=== PATIENT | female | born 1950 | race Caucasian/White ===

== ENCOUNTER 2017-12-09 06:06 | Day surgery (SDC) | payer MEDICARE, BC ==
[2017-12-09] MEDS ORDERED: Sodium Chloride 0.9% 5 ML Syringe FLUSH PRN (06:15)
[2017-12-09] MEDS ORDERED: Sodium Chloride 0.9% 1,000 ML IV SCH (06:15)
[2017-12-09] MEDS: Cyclopentolate 1% Opth Soln 2 ML Bottle EYERT SCH ×3 (06:26→06:58)
[2017-12-09] MEDS: Phenylephrine 10% Ophth Soln 5 ML Bot EYERT SCH ×3 (06:38→07:07)
[2017-12-09] MEDS ORDERED: Gatifloxacin 0.5% Ophth Soln 2.5 ML Bot EYERT SCH (07:15)
[2017-12-09] MEDS ORDERED: Water For Irrigation,Sterile 1,500 ML Container IRR ONE (08:39)
[2017-12-09] MEDS ORDERED: Balanced Salt Solution Ophth Irrig 15 ML Bottle EYERT ONE (08:39)
[2017-12-09] MEDS ORDERED: EPINEPHrine 1 MG/ML SDV ONE (08:40)
[2017-12-09] MEDS ORDERED: Carbachol 0.01% Intraocular 1.5 ML Vial EYERT ONE (08:40)
[2017-12-09] MEDS ORDERED: Dexamethasone/Neomycin/Polymyxin B Ophth Oint 3.5 GM Tube EYERT ONE (08:40)
[2017-12-09] MEDS ORDERED: Balanced Salt Solution Plus Ophth Irrig 500 ML Bottle IOCULAR ONE (08:40)
[2017-12-09] MEDS ORDERED: Lidocaine 1% 10 ML MDV INJECT ONE (08:41)
[2017-12-09] MEDS ORDERED: Lidocaine 2% with EPINEPHrine 1:100,000 20 ML MDV INJECT ONE (08:41)
[2017-12-09] MEDS ORDERED: Hyaluronate Sodium 1% 0.85 ML Syringe IOCULAR ONE ×2 (08:41)
[2017-12-09] MEDS ORDERED: Tetracaine HCl/PF 0.5% 4 ML Bottle EYEBOTH ONE (08:42)
--- NOTE | 2017-12-10 09:56 | OR ---
DATE OF SURGERY: 12/09/2017 SURGEON: Sav Kaiser MD PREOPERATIVE DIAGNOSIS: Cataract, right eye. POSTOPERATIVE DIAGNOSIS: Cataract, right eye. OPERATION PERFORMED: Phacoemulsification with posterior chamber lens insertion, right eye. HISTORY: The patient presents at this time with increasing difficulty seeing road signs. Vision for the right eye is 20/50. In the right eye, has a 2 to 3+ nuclear sclerosis of the lens along with a 1 to 2+ posterior subcapsular change. 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 FINDINGS: The patient was taken to the operating room where appropriate anesthesia, sedation and monitoring were provided. A retrobulbar block was given on the right side. The eye was massaged and was found to be appropriately soft. The eye and eyelids were then prepped and draped in the usual sterile manner. A lid speculum was placed. A micro sharp blade was used to enter the anterior chamber inside the limbus superior-temporally. Xylocaine was irrigated into the eye at this site. Healon was irrigated into the eye through this site. Then using a 2.85 mm corneal blade an entry was made into the anterior chamber just inside the limbus temporally. Healon was again irrigated into the eye. Then using a cystitome, the anterior capsulorrhexis was created. The lens nucleus was hydrodissected using a 27 gauge cannula and balanced salt solution. The phacoemulsification unit was introduced through the temporal site and the Stew spatula through the superior temporal site. In so doing, the lens nucleus was phacoemulsified. The cortical fragments of the lens were removed using the irrigation aspiration unit. The posterior capsule was polished. Healon was irrigated into the eye. The posterior chamber lens was inserted and rotated into position inside the capsular bag. The Healon was irrigated out of the eye. Miostat was irrigated into the eye and the pupil rounded nicely. A single interrupted 10-0 Nylon suture was placed through the temporal corneal incision site. Balanced salt solution was irrigated into the eye. The wound was tested and found to be tight. Maxitrol ointment was placed into the patient's right eye. The eyelids were closed and an eye patch and cabrera shield were placed. The patient left the operating room in good condition. /[id number]/MODL
== END 2017-12-09 09:35 | disposition home or self-care (01) ==
LOC: KA.SDS 06:06
PROVIDERS: ATTEND Ophthalmology
DX: H25.011 Cortical age-related cataract, right eye (principal); E03.9 Hypothyroidism, unspecified; E78.00 Pure hypercholesterolemia, unspecified; I12.9 Hypertensive chronic kidney disease with stage 1 through stage 4 chronic kidney disease, or unspecified chronic kidney disease; E11.22 Type 2 diabetes mellitus with diabetic chronic kidney disease; N18.3 Chronic kidney disease, stage 3 (moderate); Z79.899 Other long term (current) drug therapy; Z79.82 Long term (current) use of aspirin; Z88.1 Allergy status to other antibiotic agents; Z88.8 Allergy status to other drugs, medicaments and biological substances
CPT/HCPCS: 00142; 82962; A9270-GY; C1780; J0171; J7030

== ENCOUNTER 2018-01-06 06:05 | Day surgery (SDC) | payer MEDICARE, BC ==
[2018-01-06] MEDS ORDERED: Sodium Chloride 0.9% 5 ML Syringe FLUSH PRN (06:15)
[2018-01-06] MEDS ORDERED: Gatifloxacin 0.5% Ophth Soln 2.5 ML Bot EYELF SCH (06:15)
[2018-01-06] MEDS ORDERED: Sodium Chloride 0.9% 1,000 ML IV SCH (06:15)
[2018-01-06] MEDS: Phenylephrine 10% Ophth Soln 5 ML Bot EYELF SCH ×3 (06:23→06:56)
[2018-01-06] MEDS: Cyclopentolate 1% Opth Soln 2 ML Bottle EYELF SCH ×3 (06:36→07:06)
[2018-01-06] MEDS ORDERED: Water For Irrigation,Sterile 1,500 ML Container IRR ONE (08:32)
[2018-01-06] MEDS ORDERED: EPINEPHrine 1 MG/ML SDV ONE (08:33)
[2018-01-06] MEDS ORDERED: Balanced Salt Solution Ophth Irrig 15 ML Bottle EYELF ONE (08:33)
[2018-01-06] MEDS ORDERED: Carbachol 0.01% Intraocular 1.5 ML Vial EYELF ONE (08:33)
[2018-01-06] MEDS ORDERED: Balanced Salt Solution Plus Ophth Irrig 500 ML Bottle IOCULAR ONE (08:33)
[2018-01-06] MEDS ORDERED: Dexamethasone/Neomycin/Polymyxin B Ophth Oint 3.5 GM Tube EYELF ONE (08:34)
[2018-01-06] MEDS ORDERED: Hyaluronate Sodium 1% 0.85 ML Syringe IOCULAR ONE (08:35)
[2018-01-06] MEDS ORDERED: Lidocaine 2% with EPINEPHrine 1:100,000 20 ML MDV INJECT ONE (08:35)
[2018-01-06] MEDS ORDERED: Lidocaine 1% 10 ML MDV INJECT ONE (08:35)
[2018-01-06] MEDS ORDERED: Tetracaine HCl/PF 0.5% 4 ML Bottle EYEBOTH ONE (08:36)
--- NOTE | 2018-01-07 09:29 | OR ---
DATE OF SURGERY: 01/06/2018 SURGEON: Sav Kaiser MD PREOPERATIVE DIAGNOSIS: Cataract, left eye. POSTOPERATIVE DIAGNOSIS: Cataract, left eye. OPERATION: Phacoemulsification with posterior chamber lens insertion, left eye. HISTORY: The patient presents with increasing difficulty seeing at night due to glare. The vision of the left eye is 20/60 -2. The left eye has a 2 to 3+ nuclear sclerosis lens along with a 2+ posterior subcapsular change. She has a cataract of aging, and a combined cataract. FINDINGS: The patient was taken to the operating room where appropriate anesthesia, sedation and monitoring were provided. A retrobulbar block was given on the left side. The eye was massaged and was found to be appropriately soft. The eye and eyelids were then prepped and draped in the usual sterile manner. A lid speculum was placed. A micro sharp blade was used to enter the anterior chamber inside the limbus inferior-temporally. Xylocaine was irrigated into the eye at this site. Healon was irrigated into the eye through this site. Then using a 2.85 mm corneal blade an entry was made into the anterior chamber just inside the limbus temporally. Healon was again irrigated into the eye. Then using a cystitome, the anterior capsulorrhexis was created. The lens nucleus was hydrodissected using a 27 gauge cannula and balanced salt solution. The phacoemulsification unit was introduced through the temporal site and the Stew spatula through the inferior temporal site. In so doing, the lens nucleus was phacoemulsified. The cortical fragments of the lens were removed using the irrigation aspiration unit. The posterior capsule was polished. Healon was irrigated into the eye. The posterior chamber lens was inserted and rotated into position inside the capsular bag. The Healon was irrigated out of the eye. Miostat was irrigated into the eye and the pupil rounded nicely. A single interrupted 10-0 Nylon suture was placed through the temporal corneal incision site. Balanced salt solution was irrigated into the eye. The wound was tested and found to be tight. Maxitrol ointment was placed into the patient's left eye. The eyelids were closed and an eye patch and cabrera shield were placed. The patient left the operating room in good condition. /[id number]/MODL
== END 2018-01-06 09:22 | disposition home or self-care (01) ==
LOC: KA.SDS 06:05
PROVIDERS: ATTEND Ophthalmology
DX: H25.812 Combined forms of age-related cataract, left eye (principal); I12.9 Hypertensive chronic kidney disease with stage 1 through stage 4 chronic kidney disease, or unspecified chronic kidney disease; E11.22 Type 2 diabetes mellitus with diabetic chronic kidney disease; N18.3 Chronic kidney disease, stage 3 (moderate); E78.00 Pure hypercholesterolemia, unspecified; E83.52 Hypercalcemia; Z79.84 Long term (current) use of oral hypoglycemic drugs; Z79.82 Long term (current) use of aspirin; Z79.899 Other long term (current) drug therapy; Z88.1 Allergy status to other antibiotic agents; Z88.2 Allergy status to sulfonamides; Z88.8 Allergy status to other drugs, medicaments and biological substances
CPT/HCPCS: 82962; A9270-GY; J0171; J7030

== ENCOUNTER 2021-09-04 10:14 | Inpatient (IN) | payer MEDICARE, BC ==
[2021-09-04] MEDS: Sodium Chloride 0.9% 10 ML Syringe FLUSH PRN ×2 (10:18→12:05)
--- NOTE | 2021-09-04 10:24 | EDM.PDOC ---
ED HPI GENERAL MEDICAL PROBLEM - General Chief Complaint: Respiratory Problem Stated Complaint: FATIGUE Time Seen by Provider: 09/04/21 10:21 Source of Information: Reports: Patient - History of Present Illness INITIAL COMMENTS - FREE TEXT/NARRATIVE: Linnea, 70-year-old female, brought by her per private vehicle with onset of chills roughly 10 days ago. States she became sick 4 days ago. Cough worsening fatigue increased blood sugars with poor appetite. 1.7 L bottle alcohol every 4 days predominantly evening drinking. is unsure of intake the past couple days. Covid vaccinated as well as boosted in July 2021. Increased blood sugars have been prominent running in the high 200s. Denies chest pain body aches or injury. relates she is having some cognitive decline with memory and is scheduled for November 27 for psychiatric/neuropsychiatric testing Onset: Unknown/Unsure Duration: Week(s): Location: Reports: Chest - Related Data Allergies Allergy/AdvReac Type Severity Reaction Status Date / Time Knupvfs-UNU-AiN Reductase Allergy ELEVATED Verified 09/04/21 12:41 Inhibitor LIVER [Chbrpmd-Wyn-Hhh Reductase ENZYMES Inhibitor] sulfamethizole Allergy UNKNOWN Verified 09/04/21 12:41 sulfamethoxazole Allergy Rash Verified 09/04/21 12:41 [From Bactrim] trimethoprim [From Bactrim] Allergy Rash Verified 09/04/21 12:41 Home Meds: Home Meds Aspirin [Halfprin] 81 mg PO DAILY 12/08/17 [History] Desoximetasone [Topicort 0.25% Crm] 15 gm TOP BID PRN 12/08/17 [History] Metoprolol Succinate [Toprol Xl] 25 mg PO DAILY 12/08/17 [History] SitaGLIPtin [Januvia] 100 mg PO DAILY 12/08/17 [History] Valsartan 160 mg PO DAILY 12/08/17 [History] amLODIPine Besylate [Amlodipine Besylate] 10 mg PO DAILY 12/08/17 [History] Donepezil HCl [Aricept] 10 mg PO BEDTIME 09/04/21 [History] Levothyroxine 112 mcg PO ACBREAKFAST 09/04/21 [History] Sertraline [Zoloft] 50 mg PO DAILY 09/04/21 [History] metFORMIN HCl [Metformin HCl ER] 500 mg PO BEDTIME 09/04/21 [History] Past Medical History HEENT History: Reports: Cataract, Hard of Hearing, Impaired Vision Cardiovascular History: Reports: High Cholesterol, Hypertension Gastrointestinal History: Reports: None Genitourinary History: Reports: None [employer] History: Reports: Endocrine/Metabolic History: Reports: Hyperparathyroidism, Hypothyroidism - Infectious Disease History Infectious Disease History: Reports: Chicken Pox, Measles, Mumps - Past Surgical History Head Surgeries/Procedures: Reports: None HEENT Surgical History: Reports: Cataract Surgery, Tonsillectomy Cardiovascular Surgical History: Reports: None GI Surgical History: Reports: Appendectomy Female Surgical History: Reports: Hysterectomy, Tubal Ligation Endocrine Surgical History: Reports: None Dermatological Surgical History: Reports: None Social & Family History - Family History Family Medical History: No Pertinent Family History - Caffeine Use Caffeine Use: Reports: Coffee, Soda ED ROS GENERAL - Review of Systems Review Of Systems: Comprehensive ROS is negative, except as noted in HPI. ED EXAM, GENERAL - Physical Exam Exam: See Below Free Text/Narrative:: Alert and somewhat oriented to location. She does appear ill. There is no cyanosis nor pallor. [place] moist mucous membranes with hearing aids in place. Neck is soft supple no JVD, no carotid bruit, no rigidity. Thorax is mildly diminished lower left worse so than right with scattered rhonchi. No wheezes are appreciated. Cardiac is S1-S2 tachycardic in nature with no murmur appreciated. Abdomen is soft bowel sounds are present there is no tenderness. Is trace edema to lower extremities with no evidence of integument disruption. She is somewhat slow in her response to verbal questioning if it is secondary of hearing or of cognitive decline. #1 Interpretation EKG Date: 09/04/21 Time: 10:41 Rhythm: NSR Rate (Beats/Min): 103 (Sinus tachycardia) [place]: Normal P-Wave: Present QRS: Normal ST-T: Normal QT: Normal Comparison: NA - No Prior EKG Course - Vital Signs Last Recorded V/S: Last Vital Signs Temp 96.7 F L 09/04/21 11:00 Pulse 2 L 09/04/21 11:00 Resp 21 H 09/04/21 11:00 BP 114/57 L 09/04/21 11:00 Pulse Ox 93 L 09/04/21 11:00 - Orders/Labs/Meds Orders: Active Orders 24 hr Category Date Time Status Patient Status [ADT] Routine ADT 09/04/21 13:40 Active Blood Glucose Check, Bedside [RC] ONETIME Care 09/04/21 12:59 Active Peripheral IV Care [RC] . DIRECTED Care 09/04/21 10:23 Active CULTURE BLOOD [BC] Stat Lab 09/04/21 10:35 Received CULTURE BLOOD [BC] Stat Lab 09/04/21 10:35 Received LACTIC ACID [CHEM] Routine Lab 09/04/21 13:32 Ordered UA RFX SHAYNE AND CULT IF INDIC [URIN] Stat Lab 09/04/21 10:22 Ordered Sodium Chloride 0.9% [Normal Saline] 50 ml Med 09/04/21 11:45 Active IV ASDIRECTED Sodium Chloride 0.9% [Saline Flush] Med 09/04/21 10:22 Active 10 ml FLUSH Q8HR PRN Blood Culture x2 Reflex Set [OM.PC] Stat Oth 09/04/21 10:22 Ordered Peripheral IV Insertion Adult [OM.PC] Stat Oth 09/04/21 10:22 Ordered Code Status [Resuscitation Status] Stat Resus Stat 09/04/21 13:42 Ordered EKG 12 Lead [EK] Stat Ther 09/04/21 10:22 Ordered Medication Orders Sodium Chloride (Normal Saline) 50 mls @ 200 mls/min IV ASDIRECTED ALICIA Sodium Chloride (Sodium Chloride 0.9% 10 Ml Syringe) 10 ml FLUSH Q8HR PRN PRN Reason: keep vein open Last Admin: 09/04/21 12:05 Dose: 10 ml Documented by: Admin: 09/04/21 10:18 Dose: 10 ml Documented by: GIGI Labs: Laboratory Tests 09/04/21 09/04/21 09/04/21 Range/Units 10:20 10:20 10:22 WBC 17.22 H (5.00-10.00) 10^3/uL RBC 3.86 (3.80-5.50) 10^6/uL Hgb 12.5 (12.0-16.0) g/dL Hct 36.8 L (37.0-47.0) % MCV 95.3 H (82.0-92.0) fL MCH 32.4 H (27.0-31.0) pg MCHC 34.0 (32.0-36.0) g/dL RDW 11.9 (11.5-14.5) % Plt Count 459 H (150-400) 10^3/uL MPV 10.4 (7.4-10.4) fL Immature Gran % (Auto) 1.2 (0.0-5.0) % Neut % (Auto) 82.5 H (50.0-70.0) % Lymph % (Auto) 3.7 L (20.0-40.0) % [place] % (Auto) 12.4 H (2.0-8.0) % Eos % (Auto) 0.0 L (1.0-3.0) % Baso % (Auto) 0.2 (0.0-1.0) % Neut # (Auto) 14.22 H (2.50-7.00) 10^3/uL Lymph # (Auto) 0.64 L (1.00-4.00) 10^3/uL [place] # (Auto) 2.13 H (0.10-0.80) 10^3/uL Eos # (Auto) 0.00 L (0.10-0.30) 10^3/uL Baso # (Auto) 0.03 (0.00-0.10) 10^3/uL Immature Gran # (Auto) 0.20 (0.00-0.50) 10^3/uL D-Dimer, Quantitative 1670 H (<400) ng/mL Sodium 127 L (136-145) mmol/L Potassium 3.3 L (3.5-5.1) mmol/L Chloride 90 L (98-107) mmol/L Carbon Dioxide 20.6 L (21.0-32.0) mmol/L Anion Gap 19.7 H (5-15) mmol/L BUN 26 H (7-18) mg/dL Creatinine 1.06 (0.51-1.17) mg/dL Est Cr Clr Drug Dosing TNP Estimated GFR (MDRD) 51 mL/min Glucose 356 H (70-140) mg/dL Lactic Acid (0.4-2.0) mmol/L Calcium 9.1 (8.7-10.3) mg/dL Total Bilirubin 0.7 (0.2-1.0) mg/dL AST 20 (15-37) U/L ALT 18 (14-63) U/L Alkaline Phosphatase 62 (46-116) U/L Troponin I High Sens < 4.000 (0-51.000) pg/mL C-Reactive Protein > 11.0 H (0.0-0.9) mg/dL B-Natriuretic Peptide 234 H (0-100) pg/mL Total Protein 7.2 (6.4-8.2) g/dL Albumin 2.51 L (3.40-5.00) g/dL Ethyl Alcohol (NOT DETECTED) mg/dL Influenza Type A RNA (NEGATIVE) RSV RNA (INAAT) (NEGATIVE) Influenza Type B RNA (NEGATIVE) SARS-CoV-2 RNA (LIZ) (NEGATIVE) 09/04/21 09/04/21 09/04/21 Range/Units 10:22 10:45 10:49 WBC (5.00-10.00) 10^3/uL RBC (3.80-5.50) 10^6/uL Hgb (12.0-16.0) g/dL Hct (37.0-47.0) % MCV (82.0-92.0) fL MCH (27.0-31.0) pg MCHC (32.0-36.0) g/dL RDW (11.5-14.5) % Plt Count (150-400) 10^3/uL MPV (7.4-10.4) fL Immature Gran % (Auto) (0.0-5.0) % Neut % (Auto) (50.0-70.0) % Lymph % (Auto) (20.0-40.0) % [place] % (Auto) (2.0-8.0) % Eos % (Auto) (1.0-3.0) % Baso % (Auto) (0.0-1.0) % Neut # (Auto) (2.50-7.00) 10^3/uL Lymph # (Auto) (1.00-4.00) 10^3/uL [place] # (Auto) (0.10-0.80) 10^3/uL Eos # (Auto) (0.10-0.30) 10^3/uL Baso # (Auto) (0.00-0.10) 10^3/uL Immature Gran # (Auto) (0.00-0.50) 10^3/uL D-Dimer, Quantitative (<400) ng/mL Sodium (136-145) mmol/L Potassium (3.5-5.1) mmol/L Chloride (98-107) mmol/L Carbon Dioxide (21.0-32.0) mmol/L Anion Gap (5-15) mmol/L BUN (7-18) mg/dL Creatinine (0.51-1.17) mg/dL Est Cr Clr Drug Dosing Estimated GFR (MDRD) mL/min Glucose (70-140) mg/dL Lactic Acid 2.9 H (0.4-2.0) mmol/L Calcium (8.7-10.3) mg/dL Total Bilirubin (0.2-1.0) mg/dL AST (15-37) U/L ALT (14-63) U/L Alkaline Phosphatase (46-116) U/L Troponin I High Sens (0-51.000) pg/mL C-Reactive Protein (0.0-0.9) mg/dL B-Natriuretic Peptide (0-100) pg/mL Total Protein (6.4-8.2) g/dL Albumin (3.40-5.00) g/dL Ethyl Alcohol < 3 H (NOT DETECTED) mg/dL Influenza Type A RNA Positive H (NEGATIVE) RSV RNA (INAAT) Negative (NEGATIVE) Influenza Type B RNA Negative (NEGATIVE) SARS-CoV-2 RNA (LIZ) Negative (NEGATIVE) Meds: Medications Generic Name Dose Route Start Last Admin Trade Name Freq PRN Reason Stop Dose Admin Sodium Chloride 50 mls @ 200 mls/min 09/04/21 11:45 Normal Saline IV ASDIRECTED ALICIA Sodium Chloride 10 ml 09/04/21 10:22 09/04/21 12:05 Sodium Chloride 0.9% 10 Ml Syringe FLUSH 10 ml Q8HR PRN Administration keep vein open Discontinued Medications Generic Name Dose Route Start Last Admin Trade Name Freq PRN Reason Stop Dose Admin Ceftriaxone Sodium 1 gm 09/04/21 12:19 09/04/21 12:38 Ceftriaxone 1 Gm Vial IVPUSH 09/04/21 12:20 1 gm ONETIME ONE Administration Azithromycin 500 mg/ Sodium 250 mls @ 250 mls/hr 09/04/21 12:19 09/04/21 13:01 Chloride IV 09/04/21 13:18 250 mls/hr ONETIME ONE Administration Sodium Chloride 1,000 mls @ 999 mls/hr 09/04/21 12:21 09/04/21 12:37 Normal Saline IV 09/04/21 13:21 999 mls/hr .BOLUS ONE Administration Insulin Human Regular 10 unit 09/04/21 11:28 09/04/21 12:03 Insulin Regular, Human 100 Units/Ml 10 Ml Vial IV 09/04/21 11:29 10 units ONETIME ONE Administration Iopamidol 75 ml 09/04/21 11:39 Iopamidol 755 Mg/Ml 75 Ml Bottle IVPUSH 09/04/21 11:40 ONETIME ONE Departure - Departure Time of Disposition: 13:49 Disposition: Admitted As Inpatient 66 Condition: Fair Clinical Impression: Poorly controlled diabetes mellitus, Elevated d-dimer, Influenza A, Cough, Fever Pneumonia Qualifiers: Pneumonia type: due to unspecified organism Laterality: bilateral Fatigue Qualifiers: Fatigue type: unspecified Qualified Code(s): R53.83 - Other fatigue - Discharge Information *PRESCRIPTION DRUG MONITORING PROGRAM REVIEWED*: Not Applicable *COPY OF PRESCRIPTION DRUG MONITORING REPORT IN PATIENT [place]: Not Applicable Referrals: Arleen Ervin MD [Physician] - Deloris Harris NP [Primary Care Provider] - Forms: ED Department Discharge Additional Instructions: Discussed with Dr. Zambrano, findings and admission criteria Sepsis Event Note (ED) - Focused Exam Vital Signs: Vital Signs Temp Pulse Resp BP Pulse Ox 09/04/21 11:00 96.7 F L 2 L 21 H 114/57 L 93 L ED Communication - ED Communication Date/Time Date: 09/04/21 Time Called: 13:30 - Discussed Case With (1) Discussed Case With (1): Admitting Provider Person/s Notified (1): [place] Zambrano - Problem List & Annotations (1) Fever SNOMED Code(s): 799394291 Code(s): R50.9 - FEVER, UNSPECIFIED Status: Acute Priority: High Current Visit: Yes (2) Cough SNOMED Code(s): 23320419 Code(s): R05.9 - COUGH, UNSPECIFIED Status: Acute Priority: High Curren t Visit: Yes (3) Fatigue SNOMED Code(s): 39114102 Code(s): R53.83 - OTHER FATIGUE Status: Acute Priority: High Current Visit: Yes Qualifiers: Fatigue type: unspecified Qualified Code(s): R53.83 - Other fatigue (4) Poorly controlled diabetes mellitus SNOMED Code(s): 043020442, 024398389 Code(s): E11.65 - TYPE 2 DIABETES MELLITUS WITH HYPERGLYCEMIA Status: Acute Priority: High Current Visit: Yes (5) Pneumonia SNOMED Code(s): 905387378 Code(s): J18.9 - PNEUMONIA, UNSPECIFIED ORGANISM Status: Acute Priority: High Current Visit: Yes Qualifiers: Pneumonia type: due to unspecified organism Laterality: bilateral (6) Influenza A SNOMED Code(s): 558753984 Code(s): J10.1 - FLU DUE TO OTH IDENT INFLUENZA VIRUS W OTH RESP MANIFEST Status: Acute Current Visit: Yes (7) Elevated d-dimer SNOMED Code(s): 713533163 Code(s): R79.89 - OTHER SPECIFIED ABNORMAL FINDINGS OF BLOOD CHEMISTRY Status: Acute Priority: High Current Visit: Yes - Problem List Review Problem List Initiated/Reviewed/Updated: Yes - My Orders Last 24 Hours: My Active Orders 09/04/21 10:22 UA RFX SHAYNE AND CULT IF INDIC [URIN] Stat Sodium Chloride 0.9% [Saline Flush] 10 ml FLUSH Q8HR PRN Blood Culture x2 Reflex Set [OM.PC] Stat Peripheral IV Insertion Adult [OM.PC] Stat EKG 12 Lead [EK] Stat 09/04/21 10:23 Peripheral IV Care [RC] . DIRECTED 09/04/21 10:35 CULTURE BLOOD [BC] Stat CULTURE BLOOD [BC] Stat 09/04/21 11:45 Sodium Chloride 0.9% [Normal Saline] 50 ml IV ASDIRECTED 09/04/21 12:59 Blood Glucose Check, Bedside [RC] ONETIME 09/04/21 13:32 LACTIC ACID [CHEM] Routine 09/04/21 13:40 Patient Status [ADT] Routine 09/04/21 13:42 Code Status [Resuscitation Status] Stat - Assessment/Plan Last 24 Hours: My Active Orders 09/04/21 10:22 UA RFX SHAYNE AND CULT IF INDIC [URIN] Stat Sodium Chloride 0.9% [Saline Flush] 10 ml FLUSH Q8HR PRN Blood Culture x2 Reflex Set [OM.PC] Stat Peripheral IV Insertion Adult [OM.PC] Stat EKG 12 Lead [EK] Stat 09/04/21 10:23 Peripheral IV Care [RC] . DIRECTED 09/04/21 10:35 CULTURE BLOOD [BC] Stat CULTURE BLOOD [BC] Stat 09/04/21 11:45 Sodium Chloride 0.9% [Normal Saline] 50 ml IV ASDIRECTED 09/04/21 12:59 Blood Glucose Check, Bedside [RC] ONETIME 09/04/21 13:32 LACTIC ACID [CHEM] Routine 09/04/21 13:40 Patient Status [ADT] Routine 09/04/21 13:42 Code Status [Resuscitation Status] Stat Plan: Discussed with Dr. Zambrano, findings and admission criteria.
[2021-09-04 10:54] LABS: ANION GAP 19.7 mmol/L (5-15); CHLORIDE,CL 90 mmol/L (98-107); SODIUM,NA 127 mmol/L (136-145)
[2021-09-04] MEDS: Iopamidol 755 Mg/ML 75 ML Bottle IVPUSH ONE ×2 (10:55→19:11)
--- NOTE | 2021-09-04 11:16 | CR ---
[id number] RAD/RAD Chest PA or AP 1V EXAM: RAD Chest PA or AP 1V INDICATION: COUGH, SHORTNESS OF BREATH, FATIGUE. COMPARISON: None. DISCUSSION: Cardiomediastinal silhouette is normal in size and contour. Patchy pulmonary infiltrates bilaterally. No pneumothorax or pleural effusion. IMPRESSION: Patchy pulmonary infiltrates bilaterally. Findings are likely infectious/inflammatory in nature as can be seen with atypical/pneumonia. German Stevens DO 09/04/21 1115 Thank you for allowing us to participate in the care of your patient.
[2021-09-04] MEDS ORDERED: Insulin Regular, Human 100 Units/ML 10 ML Vial IV ONE (11:28)
[2021-09-04 11:40] LABS: CORONAVIRUS COVID-19 NAA NEGATIVE (NEGATIVE)
[2021-09-04 11:41] LABS: RESPIRATORY SYNCYTIAL VIR NAA NEGATIVE (NEGATIVE)
[2021-09-04] MEDS ORDERED: Sodium Chloride 0.9% 50 ML IV SCH (11:45)
[2021-09-04] MEDS ORDERED: cefTRIAXone 1 GM Vial IVPUSH ONE (12:19)
[2021-09-04] MEDS ORDERED: Azithromycin 500 MG in Sodium Chloride 0.9% 250 ML IV ONE (12:19)
[2021-09-04] MEDS ORDERED: Sodium Chloride 0.9% 1,000 ML IV ONE (12:21)
--- NOTE | 2021-09-04 12:25 | CT ---
[id number] CT/CTA Chest EXAM: CT ANGIOGRAM CHEST INDICATION: SHORT OF BREATH,ELEVATED D DIMER. COMPARISON: None. DISCUSSION: The pulmonary arteries are normal in appearance with no emboli identified. There are numerous areas of consolidative density seen throughout the lungs bilaterally. A few of these lesions demonstrate cavitation. These are prominently peripherally based.No pleural or pericardial effusion. Atherosclerotic calcifications of aorta and its branches. Coronary calcifications involving the abdominal aorta. Coronary artery disease. No mediastinal, hilar or axillary lymphadenopathy. The imaged upper abdomen and osseous structures are unremarkable. IMPRESSION: 1. No evidence of acute pulmonary embolism. 2. Numerous areas of consolidative density seen throughout the lungs bilaterally. A few of these lesions demonstrate cavitation. Findings are likely infectious/inflammatory in nature consistent with multifocal pneumonia. Septic emboli are in the differential. German Stevens DO 09/04/21 1224 Thank you for allowing us to participate in the care of your patient.
[2021-09-04] MEDS ORDERED: Glucagon,Human Recombinant 1 MG Vial IM PRN (17:54)
[2021-09-04] MEDS ORDERED: 50% Dextrose in Water 50 ML Syringe IVPUSH PRN (17:54)
[2021-09-04] MEDS: Metoprolol Succinate 25 MG Tab.ER PO SCH (18:33)
[2021-09-04] MEDS: amLODIPine 5 MG Tab PO SCH (18:33)
[2021-09-04] MEDS: VALSARTAN 160 MG PO SCH (18:34)
[2021-09-04] MEDS: Sodium Chloride 0.9% 1,000 ML IV SCH (18:51)
[2021-09-04] MEDS: Insulin Aspart 100 Units/ML 3 ML Pen SUBCUT SCH (18:52)
[2021-09-04] MEDS: Donepezil 10 MG Tab PO SCH (21:08)
[2021-09-05] MEDS: Sodium Chloride 0.9% 1,000 ML IV SCH ×2 (05:15→14:34)
[2021-09-05] MEDS: Levothyroxine 112 MCG Tab PO SCH (06:44)
[2021-09-05 07:54] LABS: ANION GAP 17.2 mmol/L (5-15); CHLORIDE,CL 97 mmol/L (98-107); SODIUM,NA 133 mmol/L (136-145)
[2021-09-05] MEDS: Insulin Aspart 100 Units/ML 3 ML Pen SUBCUT SCH ×3 (08:05→17:55)
[2021-09-05] MEDS ORDERED: Potassium Chloride 20 MEQ Tab.ER PO ONE ×3 (09:25→19:00)
[2021-09-05] MEDS: Aspirin 81 MG Tab.EC PO SCH (09:32)
[2021-09-05] MEDS: Sertraline 50 MG Tab PO SCH (09:33)
[2021-09-05] MEDS: amLODIPine 5 MG Tab PO SCH (09:34)
[2021-09-05] MEDS: Metoprolol Succinate 25 MG Tab.ER PO SCH (09:34)
[2021-09-05] MEDS: VALSARTAN 160 MG PO SCH (09:35)
[2021-09-05] MEDS: FENOFIBRATE 160 MG PO SCH (09:49)
[2021-09-05] MEDS: Azithromycin 250 MG Tab PO SCH (10:47)
[2021-09-05] MEDS: cefTRIAXone 1 GM Vial IVPUSH SCH (10:47)
--- NOTE | 2021-09-05 11:27 | PCM.HP.2 ---
H&P History of Present Illness - General Date of Service: 09/05/21 Admit Problem/Dx: Admission Diagnosis/Problem Admission Diagnosis/Problem Pneumonia - History of Present Illness Initial Comments - Free Text/Narative: Ms Foy is a 70-year-old female, brought by her per private vehicle with onset of chills roughly 10 days ago. States she became sick 4 days ago. Cough worsening, fatigue, increased blood sugars with poor appetite. She consumes 1.7 L bottle alcohol every 4 days predominantly evening drinking. is unsure of intake the past couple days. Covid vaccinated as well as boosted in July 2021. Increased blood sugars have been prominent running in the high 200s. Denies chest pain, body aches or injury. relates she is having some cognitive decline with memory and is scheduled for November 27 for psychiatric/neuropsychiatric testing. In the ED, CXR and CT showed multiple bilateral infiltrates. patient received ceftriaxone and azithromycin. Patient was also positive for influenza. - Related Data Allergies/Adverse Reactions: Allergies Allergy/AdvReac Type Severity Reaction Status Date / Time [id number]-[id number]-[id number] Reductase Allergy ELEVATED Verified 09/04/21 12:41 Inhibitor LIVER [Qsaheej-Xyq-Wam Reductase ENZYMES Inhibitor] sulfamethizole Allergy UNKNOWN Verified 09/04/21 12:41 sulfamethoxazole Allergy Rash Verified 09/04/21 12:41 [From Bactrim] trimethoprim [From Bactrim] Allergy Rash Verified 09/04/21 12:41 Home Medications: Home Meds Aspirin [Halfprin] 81 mg PO DAILY 12/08/17 [History] Desoximetasone [Topicort 0.25% Crm] 15 gm TOP BID PRN 12/08/17 [History] Metoprolol Succinate [Toprol Xl] 25 mg PO DAILY 12/08/17 [History] SitaGLIPtin [Januvia] 100 mg PO DAILY 12/08/17 [History] Valsartan 160 mg PO DAILY 12/08/17 [History] amLODIPine Besylate [Amlodipine Besylate] 10 mg PO DAILY 12/08/17 [History] Donepezil HCl [Aricept] 10 mg PO BEDTIME 09/04/21 [History] Fenofibrate 160 mg PO DAILY 09/04/21 [History] Levothyroxine 112 mcg PO ACBREAKFAST 09/04/21 [History] Sertraline [Zoloft] 50 mg PO DAILY 09/04/21 [History] metFORMIN HCl [Metformin HCl ER] 500 mg PO BEDTIME 09/04/21 [History] Past Medical History HEENT History: Reports: Cataract, Hard of Hearing, Impaired Vision Cardiovascular History: Reports: High Cholesterol, Hypertension Gastrointestinal History: Reports: None Genitourinary History: Reports: None, Other (See Below) Other Genitourinary History: Chronic Kidney Disease Stage 3 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: Endocrine/Metabolic History: Reports: Diabetes, Type II, Hyperparathyroidism, Hypothyroidism, Other (See Below) Other Endocrine/Metabolic History: hypercalcemia Dermatologic History: Reports: Other (See Below) Other Dermatologic History: Patient has dry skin and itching on upper back with scarring and open wounds - Infectious Disease History Infectious Disease History: Reports: Chicken Pox, Measles, Mumps - Past Surgical History Head Surgeries/Procedures: Reports: None HEENT Surgical History: Reports: Cataract Surgery, Tonsillectomy Cardiovascular Surgical History: Reports: None GI Surgical History: Reports: Appendectomy Female Surgical History: Reports: Hysterectomy, Tubal Ligation Endocrine Surgical History: Reports: None Dermatological Surgical History: Reports: None Social & Family History - Family History Family Medical History: No Pertinent Family History - Tobacco Use Tobacco Use Status *Q: Former Tobacco User Used Tobacco, but Quit: Yes Month/Year Tobacco Last Used: 15 - Caffeine Use Caffeine Use: Reports: Coffee, Soda - Alcohol Use Days Per Week of Alcohol Use: 7 Number of Drinks Per Day: 4 Total Drinks Per Week: 28 Date of Last Drink: 09/01/21 - Recreational Drug Use Recreational Drug Use: No H&P Review of Systems - Review of Systems: Review Of Systems: See Below Review of Systems Comment:: General: Malaise, Weakness, Fatigue Pulmonary: No shortness of Breath Cardiovascular: No chest Pain, palpitations Gastrointestinal: No abdominal Pain, Diarrhea, Nausea, Vomiting Genitourinary: No Dysuria, Frequency Skin: Reports: No Pruritis, Rash Neurological: Reports: No Headache, Weakness Exam - Exam Exam: See Below - Vital Signs Vital Signs: Last Vital Signs Temp 97.2 F 09/05/21 06:20 Pulse 89 09/05/21 09:34 Resp 22 H 09/05/21 06:20 BP 117/47 L 09/05/21 09:34 Pulse Ox 93 L 09/05/21 06:20 Weight: 111 lb 6.4 oz - Exam Physical Exam Comments:: General: Was sleeping initially, alert once awake, does not appear ill, not in acute distress HEENT: Atraumatic, normocephalic, hearing aids in place Oral cavity: Moist mucous membranes Cardiovascular: Regular rate and rhythm, no murmurs Pulmonary: Mildly diminished breath sounds bilaterally with scattered rhonchi. No wheezing noted. Abdomen: Soft, bowel sounds are present, no tenderness/guarding/rigidity. Extremites: No lower extremity edema noted Skin: Warm, no rash Neuro: Moving all extremities, somewhat slow in her response to verbal questioning ? secondary to hearing or/and cognitive decline Psych: Normal mood and affect - Patient Data Lab Results Last 24 hrs: Laboratory Results - last 24 hr 09/04/21 09/04/21 09/04/21 Range/Units 10:20 10:22 10:22 WBC (5.00-10.00) 10^3/uL RBC (3.80-5.50) 10^6/uL Hgb (12.0-16.0) g/dL Hct (37.0-47.0) % MCV (82.0-92.0) fL MCH (27.0-31.0) pg MCHC (32.0-36.0) g/dL RDW (11.5-14.5) % Plt Count (150-400) 10^3/uL MPV (7.4-10.4) fL Immature Gran % (Auto) (0.0-5.0) % Neut % (Auto) (50.0-70.0) % Lymph % (Auto) (20.0-40.0) % [place] % (Auto) (2.0-8.0) % Eos % (Auto) (1.0-3.0) % Baso % (Auto) (0.0-1.0) % Neut # (Auto) (2.50-7.00) 10^3/uL Lymph # (Auto) (1.00-4.00) 10^3/uL [place] # (Auto) (0.10-0.80) 10^3/uL Eos # (Auto) (0.10-0.30) 10^3/uL Baso # (Auto) (0.00-0.10) 10^3/uL Immature Gran # (Auto) (0.00-0.50) 10^3/uL D-Dimer, Quantitative 1670 H (<400) ng/mL Sodium (136-145) mmol/L Potassium (3.5-5.1) mmol/L Chloride (98-107) mmol/L Carbon Dioxide (21.0-32.0) mmol/L Anion Gap (5-15) mmol/L BUN (7-18) mg/dL Creatinine (0.51-1.17) mg/dL Est Cr Clr Drug Dosing mL/min Estimated GFR (MDRD) mL/min Glucose (70-140) mg/dL POC Glucose (70-140) mg/dL Lactic Acid 2.9 H (0.4-2.0) mmol/L Calcium (8.7-10.3) mg/dL Total Bilirubin (0.2-1.0) mg/dL AST (15-37) U/L ALT (14-63) U/L Alkaline Phosphatase (46-116) U/L B-Natriuretic Peptide 234 H (0-100) pg/mL Total Protein (6.4-8.2) g/dL Albumin (3.40-5.00) g/dL Specimen Type Urine Color (YELLOW) Urine Appearance (CLEAR) Urine pH (5.0-9.0) Ur Specific [place] (1.005-1.030) Urine Protein (NEGATIVE) mg/dL Urine Glucose (UA) (NEGATIVE) mg/dL Urine Ketones (NEGATIVE) mg/dL Urine Occult Blood (NEGATIVE) Urine Nitrite (NEGATIVE) Urine Bilirubin (NEGATIVE) Urine Urobilinogen (0.2-1.0) E.U./dL Ur Leukocyte Esterase (NEGATIVE) Urine RBC (0-5) /HPF Urine WBC (0-5) /HPF Ur Epithelial Cells /LPF Urine Bacteria (NONE TO FEW) /HPF Ethyl Alcohol (NOT DETECTED) mg/dL Influenza Type A RNA (NEGATIVE) RSV RNA (INAAT) (NEGATIVE) Influenza Type B RNA (NEGATIVE) SARS-CoV-2 RNA (LIZ) (NEGATIVE) 09/04/21 09/04/21 09/04/21 Range/Units 10:45 10:49 12:58 WBC (5.00-10.00) 10^3/uL RBC (3.80-5.50) 10^6/uL Hgb (12.0-16.0) g/dL Hct (37.0-47.0) % MCV (82.0-92.0) fL MCH (27.0-31.0) pg MCHC (32.0-36.0) g/dL RDW (11.5-14.5) % Plt Count (150-400) 10^3/uL MPV (7.4-10.4) fL Immature Gran % (Auto) (0.0-5.0) % Neut % (Auto) (50.0-70.0) % Lymph % (Auto) (20.0-40.0) % [place] % (Auto) (2.0-8.0) % Eos % (Auto) (1.0-3.0) % Baso % (Auto) (0.0-1.0) % Neut # (Auto) (2.50-7.00) 10^3/uL Lymph # (Auto) (1.00-4.00) 10^3/uL [place] # (Auto) (0.10-0.80) 10^3/uL Eos # (Auto) (0.10-0.30) 10^3/uL Baso # (Auto) (0.00-0.10) 10^3/uL Immature Gran # (Auto) (0.00-0.50) 10^3/uL D-Dimer, Quantitative (<400) ng/mL Sodium (136-145) mmol/L Potassium (3.5-5.1) mmol/L Chloride (98-107) mmol/L Carbon Dioxide (21.0-32.0) mmol/L Anion Gap (5-15) mmol/L BUN (7-18) mg/dL Creatinine (0.51-1.17) mg/dL Est Cr Clr Drug Dosing mL/min Estimated GFR (MDRD) mL/min Glucose (70-140) mg/dL POC Glucose 154 H (70-140) mg/dL Lactic Acid (0.4-2.0) mmol/L Calcium (8.7-10.3) mg/dL Total Bilirubin (0.2-1.0) mg/dL AST (15-37) U/L ALT (14-63) U/L Alkaline Phosphatase (46-116) U/L B-Natriuretic Peptide (0-100) pg/mL Total Protein (6.4-8.2) g/dL Albumin (3.40-5.00) g/dL Specimen Type Urine Color (YELLOW) Urine Appearance (CLEAR) Urine pH (5.0-9.0) Ur Specific [place] (1.005-1.030) Urine Protein (NEGATIVE) mg/dL Urine Glucose (UA) (NEGATIVE) mg/dL Urine Ketones (NEGATIVE) mg/dL Urine Occult Blood (NEGATIVE) Urine Nitrite (NEGATIVE) Urine Bilirubin (NEGATIVE) Urine Urobilinogen (0.2-1.0) E.U./dL Ur Leukocyte Esterase (NEGATIVE) Urine RBC (0-5) /HPF Urine WBC (0-5) /HPF Ur Epithelial Cells /LPF Urine Bacteria (NONE TO FEW) /HPF Ethyl Alcohol < 3 H (NOT DETECTED) mg/dL Influenza Type A RNA Positive H (NEGATIVE) RSV RNA (INAAT) Negative (NEGATIVE) Influenza Type B RNA Negative (NEGATIVE) SARS-CoV-2 RNA (LIZ) Negative (NEGATIVE) 09/04/21 09/04/21 09/04/21 Range/Units 13:50 14:15 17:58 WBC (5.00-10.00) 10^3/uL RBC (3.80-5.50) 10^6/uL Hgb (12.0-16.0) g/dL Hct (37.0-47.0) % MCV (82.0-92.0) fL MCH (27.0-31.0) pg MCHC (32.0-36.0) g/dL RDW (11.5-14.5) % Plt Count (150-400) 10^3/uL MPV (7.4-10.4) fL Immature Gran % (Auto) (0.0-5.0) % Neut % (Auto) (50.0-70.0) % Lymph % (Auto) (20.0-40.0) % [place] % (Auto) (2.0-8.0) % Eos % (Auto) (1.0-3.0) % Baso % (Auto) (0.0-1.0) % Neut # (Auto) (2.50-7.00) 10^3/uL Lymph # (Auto) (1.00-4.00) 10^3/uL [place] # (Auto) (0.10-0.80) 10^3/uL Eos # (Auto) (0.10-0.30) 10^3/uL Baso # (Auto) (0.00-0.10) 10^3/uL Immature Gran # (Auto) (0.00-0.50) 10^3/uL D-Dimer, Quantitative (<400) ng/mL Sodium (136-145) mmol/L Potassium (3.5-5.1) mmol/L Chloride (98-107) mmol/L Carbon Dioxide (21.0-32.0) mmol/L Anion Gap (5-15) mmol/L BUN (7-18) mg/dL Creatinine (0.51-1.17) mg/dL Est Cr Clr Drug Dosing mL/min Estimated GFR (MDRD) mL/min Glucose (70-140) mg/dL POC Glucose 176 H (70-140) mg/dL Lactic Acid 2.5 H (0.4-2.0) mmol/L Calcium (8.7-10.3) mg/dL Total Bilirubin (0.2-1.0) mg/dL AST (15-37) U/L ALT (14-63) U/L Alkaline Phosphatase (46-116) U/L B-Natriuretic Peptide (0-100) pg/mL Total Protein (6.4-8.2) g/dL Albumin (3.40-5.00) g/dL Specimen Type [place] Urine Color Yellow (YELLOW) Urine Appearance Clear (CLEAR) Urine pH 6.0 (5.0-9.0) Ur Specific [place] 1.010 (1.005-1.030) Urine Protein Negative (NEGATIVE) mg/dL Urine Glucose (UA) 500 H (NEGATIVE) mg/dL Urine Ketones Trace H (NEGATIVE) mg/dL Urine Occult Blood Trace-intact H (NEGATIVE) Urine Nitrite Negative (NEGATIVE) Urine Bilirubin Small H (NEGATIVE) Urine Urobilinogen 0.2 (0.2-1.0) E.U./dL Ur Leukocyte Esterase Trace H (NEGATIVE) Urine RBC 0-5 (0-5) /HPF Urine WBC 0-5 (0-5) /HPF Ur Epithelial Cells Moderate H /LPF Urine Bacteria Few (NONE TO FEW) /HPF Ethyl Alcohol (NOT DETECTED) mg/dL Influenza Type A RNA (NEGATIVE) RSV RNA (INAAT) (NEGATIVE) Influenza Type B RNA (NEGATIVE) SARS-CoV-2 RNA (LIZ) (NEGATIVE) 09/04/21 09/05/21 09/05/21 Range/Units 18:45 07:00 07:00 WBC 15.50 H (5.00-10.00) 10^3/uL RBC 3.14 L (3.80-5.50) 10^6/uL Hgb 10.1 L D (12.0-16.0) g/dL Hct 30.2 L (37.0-47.0) % MCV 96.2 H (82.0-92.0) fL MCH 32.2 H (27.0-31.0) pg MCHC 33.4 (32.0-36.0) g/dL RDW 12.2 (11.5-14.5) % Plt Count 453 H (150-400) 10^3/uL MPV 10.3 (7.4-10.4) fL Immature Gran % (Auto) 1.8 (0.0-5.0) % Neut % (Auto) 82.0 H (50.0-70.0) % Lymph % (Auto) 5.0 L (20.0-40.0) % [place] % (Auto) 10.8 H (2.0-8.0) % Eos % (Auto) 0.1 L (1.0-3.0) % Baso % (Auto) 0.3 (0.0-1.0) % Neut # (Auto) 12.73 H (2.50-7.00) 10^3/uL Lymph # (Auto) 0.77 L (1.00-4.00) 10^3/uL [place] # (Auto) 1.67 H (0.10-0.80) 10^3/uL Eos # (Auto) 0.01 L (0.10-0.30) 10^3/uL Baso # (Auto) 0.04 (0.00-0.10) 10^3/uL Immature Gran # (Auto) 0.28 (0.00-0.50) 10^3/uL D-Dimer, Quantitative (<400) ng/mL Sodium 133 L (136-145) mmol/L Potassium 2.9 L (3.5-5.1) mmol/L Chloride 97 L (98-107) mmol/L Carbon Dioxide 21.7 (21.0-32.0) mmol/L Anion Gap 17.2 H (5-15) mmol/L BUN 20 H (7-18) mg/dL Creatinine 0.88 (0.51-1.17) mg/dL Est Cr Clr Drug Dosing 47.45 mL/min Estimated GFR (MDRD) > 60 mL/min Glucose 216 H (70-140) mg/dL POC Glucose (70-140) mg/dL Lactic Acid 1.2 (0.4-2.0) mmol/L Calcium 8.1 L (8.7-10.3) mg/dL Total Bilirubin 0.5 (0.2-1.0) mg/dL AST 13 L (15-37) U/L ALT 14 (14-63) U/L Alkaline Phosphatase 49 (46-116) U/L B-Natriuretic Peptide (0-100) pg/mL Total Protein 5.8 L (6.4-8.2) g/dL Albumin 1.95 L (3.40-5.00) g/dL Specimen Type Urine Color (YELLOW) Urine Appearance (CLEAR) Urine pH (5.0-9.0) Ur Specific [place] (1.005-1.030) Urine Protein (NEGATIVE) mg/dL Urine Glucose (UA) (NEGATIVE) mg/dL Urine Ketones (NEGATIVE) mg/dL Urine Occult Blood (NEGATIVE) Urine Nitrite (NEGATIVE) Urine Bilirubin (NEGATIVE) Urine Urobilinogen (0.2-1.0) E.U./dL Ur Leukocyte Esterase (NEGATIVE) Urine RBC (0-5) /HPF Urine WBC (0-5) /HPF Ur Epithelial Cells /LPF Urine Bacteria (NONE TO FEW) /HPF Ethyl Alcohol (NOT DETECTED) mg/dL Influenza Type A RNA (NEGATIVE) RSV RNA (INAAT) (NEGATIVE) Influenza Type B RNA (NEGATIVE) SARS-CoV-2 RNA (LIZ) (NEGATIVE) 09/05/21 Range/Units 08:00 WBC (5.00-10.00) 10^3/uL RBC (3.80-5.50) 10^6/uL Hgb (12.0-16.0) g/dL Hct (37.0-47.0) % MCV (82.0-92.0) fL MCH (27.0-31.0) pg MCHC (32.0-36.0) g/dL RDW (11.5-14.5) % Plt Count (150-400) 10^3/uL MPV (7.4-10.4) fL Immature Gran % (Auto) (0.0-5.0) % Neut % (Auto) (50.0-70.0) % Lymph % (Auto) (20.0-40.0) % [place] % (Auto) (2.0-8.0) % Eos % (Auto) (1.0-3.0) % Baso % (Auto) (0.0-1.0) % Neut # (Auto) (2.50-7.00) 10^3/uL Lymph # (Auto) (1.00-4.00) 10^3/uL [place] # (Auto) (0.10-0.80) 10^3/uL Eos # (Auto) (0.10-0.30) 10^3/uL Baso # (Auto) (0.00-0.10) 10^3/uL Immature Gran # (Auto) (0.00-0.50) 10^3/uL D-Dimer, Quantitative (<400) ng/mL Sodium (136-145) mmol/L Potassium (3.5-5.1) mmol/L Chloride (98-107) mmol/L Carbon Dioxide (21.0-32.0) mmol/L Anion Gap (5-15) mmol/L BUN (7-18) mg/dL Creatinine (0.51-1.17) mg/dL Est Cr Clr Drug Dosing mL/min Estimated GFR (MDRD) mL/min Glucose (70-140) mg/dL POC Glucose 194 H (70-140) mg/dL Lactic Acid (0.4-2.0) mmol/L Calcium (8.7-10.3) mg/dL Total Bilirubin (0.2-1.0) mg/dL AST (15-37) U/L ALT (14-63) U/L Alkaline Phosphatase (46-116) U/L B-Natriuretic Peptide (0-100) pg/mL Total Protein (6.4-8.2) g/dL Albumin (3.40-5.00) g/dL Specimen Type Urine Color (YELLOW) Urine Appearance (CLEAR) Urine pH (5.0-9.0) Ur Specific [place] (1.005-1.030) Urine Protein (NEGATIVE) mg/dL Urine Glucose (UA) (NEGATIVE) mg/dL Urine Ketones (NEGATIVE) mg/dL Urine Occult Blood (NEGATIVE) Urine Nitrite (NEGATIVE) Urine Bilirubin (NEGATIVE) Urine Urobilinogen (0.2-1.0) E.U./dL Ur Leukocyte Esterase (NEGATIVE) Urine RBC (0-5) /HPF Urine WBC (0-5) /HPF Ur Epithelial Cells /LPF Urine Bacteria (NONE TO FEW) /HPF Ethyl Alcohol (NOT DETECTED) mg/dL Influenza Type A RNA (NEGATIVE) RSV RNA (INAAT) (NEGATIVE) Influenza Type B RNA (NEGATIVE) SARS-CoV-2 RNA (LIZ) (NEGATIVE) Result Diagrams: 09/05/21 07:00 09/05/21 07:00 [place] Results Last 24 hrs: Microbiology 09/04/21 10:35 Aerobic Blood Culture - Preliminary Blood - Venous - Lab Draw NO GROWTH AFTER 1 DAY Anaerobic Blood Culture - Preliminary NO GROWTH AFTER 1 DAY 09/04/21 10:35 Aerobic Blood Culture - Preliminary Blood - Venous NO GROWTH AFTER 1 DAY Anaerobic Blood Culture - Preliminary NO GROWTH AFTER 1 DAY 09/04/21 14:15 Urine Culture - Final Urine, Catheterized MIXED CONSTANTINO SUGGESTIVE OF CONTAMINATION. Sepsis Event Note - Evaluation Sepsis Screening Result: Sepsis Risk - Focused Exam Vital Signs: Vital Signs Temp Temp Pulse Pulse Resp BP BP 09/05/21 09:34 89 117/47 L 09/05/21 06:20 97.2 F 98 22 H 124/64 09/05/21 02:57 97.2 F 105 H 22 H 109/41 L Pulse Ox 09/05/21 09:34 09/05/21 06:20 93 L 09/05/21 02:57 94 L Problem List Initiated/Reviewed/Updated: Yes Orders Last 24hrs: Active Orders 24 hr Category Date Time Status Patient Status [ADT] Routine ADT 09/04/21 13:40 Active Blood Glucose Check, Bedside [RC] TIDMEALS Care 09/04/21 18:28 Active Peripheral IV Care [RC] Care 09/04/21 10:23 Active Up With Assistance [] DAILY Care 09/04/21 18:14 Active Vital Signs [RC] 03,07,11,15,19,23 Care 09/04/21 18:14 Active [employer] Diet [DIET] Diet 09/04/21 Dinner Active Heart Healthy Diet [DIET] Diet 09/04/21 Dinner Active CULTURE BLOOD [BC] Stat Lab 09/04/21 10:35 Results CULTURE BLOOD [BC] Stat Lab 09/04/21 10:35 Results Aspirin [Halfprin] Med 09/05/21 09:00 Active 81 mg PO DAILY Azithromycin [Zithromax] Med 09/05/21 09:30 Active 500 mg PO DAILY Dextrose 50% in Water Med 09/04/21 17:54 Active 50 ml IVPUSH ASDIRECTED PRN Donepezil [Aricept] Med 09/04/21 21:00 Active 10 mg PO BEDTIME Fenofibrate [Fenofibrate] Med 09/05/21 09:00 Active 0 mg PO DAILY Glucagon,Human Recombinant [GlucaGen] Med 09/04/21 17:54 Active 1 mg IM ASDIRECTED PRN Insulin Aspart [NovoLOG] Med 09/04/21 18:00 Active See Protocol SUBCUT TIDMEALS Levothyroxine Med 09/05/21 07:30 Active 112 mcg PO ACBREAKFAST Metoprolol Succinate [Toprol XL] Med 09/04/21 17:45 Active 25 mg PO DAILY Sertraline [Zoloft] Med 09/05/21 09:00 Active 50 mg PO DAILY Sodium Chloride 0.9% [Normal Saline] 1,000 ml Med 09/04/21 18:15 Active IV ASDIRECTED Sodium Chloride 0.9% [Normal Saline] 50 ml Med 09/04/21 11:45 Active IV ASDIRECTED Valsartan [Valsartan] Med 09/04/21 18:00 Active 0 mg PO DAILY amLODIPine [Norvasc] Med 09/04/21 17:45 Active 10 mg PO DAILY cefTRIAXone [Rocephin] Med 09/05/21 09:30 Active 1 gm IVPUSH Q24H Resuscitation Status Routine Resus Stat 09/04/21 19:09 Ordered Medication Orders Amlodipine Besylate (Amlodipine 5 Mg Tab) 10 mg PO DAILY [facility] Last Admin: 09/05/21 09:34 Dose: Not Given Documented by: Admin: 09/04/21 18:33 Dose: Not Given Documented by: GIGI Aspirin (Aspirin 81 Mg Tab.Ec) 81 mg PO DAILY [facility] Last Admin: 09/05/21 09:32 Dose: 81 mg Documented by: EMORY Azithromycin (Azithromycin 250 Mg Tab) 500 mg PO DAILY [facility] Stop: 09/07/21 23:59 Last Admin: 09/05/21 10:47 Dose: 500 mg Documented by: EMORY Ceftriaxone Sodium (Ceftriaxone 1 Gm Vial) 1 gm IVPUSH Q24H [facility] Last Admin: 09/05/21 10:47 Dose: 1 gm Documented by: EMORY Dextrose/Water (50% Dextrose In Water 50 Ml Syringe) 50 ml IVPUSH ASDIRECTED PRN PRN Reason: Hypoglycemia Donepezil HCl (Donepezil 10 Mg Tab) 10 mg PO BEDTIME [facility] Last Admin: 09/04/21 21:08 Dose: 10 mg Documented by: ADOLFO Glucagon (Glucagon,Human Recombinant 1 Mg Vial) 1 mg IM ASDIRECTED PRN PRN Reason: Hypoglycemia Sodium Chloride (Normal Saline) 50 mls @ 200 mls/min IV ASDIRECTED [facility] Last Admin: 09/04/21 10:56 Dose: 200 mls/min Documented by: JUANITA Sodium Chloride (Normal Saline) 1,000 mls @ 100 mls/hr IV ASDIRECTED [facility] Last Admin: 09/05/21 05:15 Dose: 100 mls/hr Documented by: Infusion: 09/05/21 04:51 Dose: 100 mls/hr Documented by: Admin: 09/04/21 18:51 Dose: 100 mls/hr Documented by: GIGI Insulin Aspart (Insulin Aspart 100 Units/Ml 3 Ml Pen) 0 unit SUBCUT TIDMEALS [facility]; Protocol Last Admin: 09/05/21 08:05 Dose: 2 units Documented by: Admin: 09/04/21 18:52 Dose: 2 units Documented by: GIGI Levothyroxine Sodium (Levothyroxine 112 Mcg Tab) 112 mcg PO ACBREAKFAST [facility] Last Admin: 09/05/21 06:44 Dose: 112 mcg Documented by: GREGORIO Metoprolol Succinate (Metoprolol Succinate 25 Mg Tab.Er) 25 mg PO DAILY [facility] Last Admin: 09/05/21 09:34 Dose: Not Given Documented by: Admin: 09/04/21 18:33 Dose: Not Given Documented by: GIGI Fenofibrate 160 Mg (Tab Own Med) 0 mg PO DAILY [facility] Last Admin: 09/05/21 09:49 Dose: 160 mg Documented by: EMORY Valsartan 160 Mg Tab (Own Med) 0 mg PO DAILY [facility] Last Admin: 09/05/21 09:35 Dose: Not Given Documented by: Admin: 09/04/21 18:34 Dose: Not Given Documented by: GIGI Sertraline HCl (Sertraline 50 Mg Tab) 50 mg PO DAILY [facility] Last Admin: 09/05/21 09:33 Dose: 50 mg Documented by: EMORY Sodium Chloride (Sodium Chloride 0.9% 10 Ml Syringe) 10 ml FLUSH Q8HR PRN PRN Reason: keep vein open Last Admin: 09/04/21 12:05 Dose: 10 ml Documented by: Admin: 09/04/21 10:18 Dose: 10 ml Documented by: GIGI Interval update: 09/05/2021: Patient's daughter is at bedside. Patient sleeping in bed but alert after awakening. Patient is hard of hearing and daughter needed to repeat questions for her. Patient denies any new symptoms since admission. She denies shortness of breath, chest pain, fever, chills, nausea, vomiting or diarrhea. She is able to ambulate to the bathroom with assistance. Discussed today's labs with daughter at bedside. Assessment/Plan Comment:: #Pneumonia, community acquired -Lactic acid normalized -Continue ceftriaxone and azithromycin -Continue IVF at 85 ml/hr since patient not consuming adequate PO hydration #Hypokalemia -40 meq potassium supplement once -Repeat potassium pending this evening, will supplement as needed #Influenza -No antivirals since onset of symptoms was atleast 4 days prior to admission #Essential hypertension -Hold home antihypertensives (amlodipine, valsartan and metoprolol) for now; will restart as appropriate #Diabetes mellitus -Hold home metformin and sitagliptin -Insulin sliding scale #Anemia -Hgb down to 10.1 from 12.5 this morning -No signs of bleeding ? dilutional -Repeat CBC tomorrow am -Will not order lovenox for DVT prophylaxis for now, only MISBAH skinner CBC, CMP, Mag pending.
[2021-09-05] MEDS ORDERED: Ondansetron 4 MG/2 ML SDV IVPUSH PRN (12:08)
[2021-09-05] MEDS: Donepezil 10 MG Tab PO SCH (20:58)
[2021-09-05] MEDS ORDERED: guaiFENesin/Dextromethorphan 100-10 MG/5 ML Soln 5 ML Cup PO PRN (23:49)
[2021-09-05] MEDS: Sodium Chloride 0.9% 10 ML Syringe FLUSH PRN (23:58)
[2021-09-06] MEDS: Sodium Chloride 0.9% 1,000 ML IV SCH (01:20)
[2021-09-06] MEDS: Insulin Aspart 100 Units/ML 3 ML Pen SUBCUT SCH ×3 (07:40→17:58)
[2021-09-06] MEDS: Levothyroxine 112 MCG Tab PO SCH (07:40)
[2021-09-06 07:43] LABS: ANION GAP 14.2 mmol/L (5-15); CHLORIDE,CL 100 mmol/L (98-107); SODIUM,NA 133 mmol/L (136-145)
[2021-09-06] MEDS: cefTRIAXone 1 GM Vial IVPUSH SCH (09:35)
[2021-09-06] MEDS: Azithromycin 250 MG Tab PO SCH (09:37)
[2021-09-06] MEDS: amLODIPine 5 MG Tab PO SCH (09:37)
[2021-09-06] MEDS: Metoprolol Succinate 25 MG Tab.ER PO SCH (09:38)
[2021-09-06] MEDS: Aspirin 81 MG Tab.EC PO SCH (09:38)
[2021-09-06] MEDS: Sertraline 50 MG Tab PO SCH (09:39)
[2021-09-06] MEDS: FENOFIBRATE 160 MG PO SCH (09:40)
[2021-09-06] MEDS: VALSARTAN 160 MG PO SCH (09:40)
--- NOTE | 2021-09-06 11:31 | PCM.PN ---
- General Info Date of Service: 09/06/21 Subjective Update: Patient feeling better this morning, she is eating and drinking better. Coughing intermittently with greenish sputum. Functional Status: Reports: Pain Controlled, Tolerating Diet, Ambulating, Urinating, Incentive Spirometry (750-1000). Denies: New Symptoms - Review of Systems General: Reports: Appetite (improving). Denies: Fever, Chills HEENT: Reports: No Symptoms. Denies: Headaches, Sore Throat Pulmonary: Reports: Cough, Sputum. Denies: Shortness of Breath, Wheezing Cardiovascular: Reports: No Symptoms Gastrointestinal: Reports: No Symptoms (stool firmer today, reports loose stools yesterday) Genitourinary: Reports: No Symptoms Musculoskeletal: Reports: No Symptoms Skin: Reports: No Symptoms Neurological: Reports: Pre-Existing Deficit (pre-existing memory loss) Psychiatric: Reports: No Symptoms - Patient Data Vitals - Most Recent: Last Vital Signs Temp 97.0 F 09/06/21 05:54 Pulse 109 H 09/06/21 09:38 Resp 20 09/06/21 05:54 BP 125/51 L 09/06/21 09:38 Pulse Ox 94 L 09/06/21 05:54 Weight - Most Recent: 111 lb 6.4 oz I&O - Last 24 Hours: Intake & Output 09/05/21 09/06/21 09/06/21 22:59 06:59 14:59 Intake Total 1070 1243 Balance 1070 1243 Lab Results Last 24 Hours: Laboratory Results - last 24 hr 09/05/21 09/05/21 09/05/21 Range/Units 11:59 17:40 17:52 WBC (5.00-10.00) 10^3/uL RBC (3.80-5.50) 10^6/uL Hgb (12.0-16.0) g/dL Hct (37.0-47.0) % MCV (82.0-92.0) fL MCH (27.0-31.0) pg MCHC (32.0-36.0) g/dL RDW (11.5-14.5) % Plt Count (150-400) 10^3/uL MPV (7.4-10.4) fL Immature Gran % (Auto) (0.0-5.0) % Neut % (Auto) (50.0-70.0) % Lymph % (Auto) (20.0-40.0) % [place] % (Auto) (2.0-8.0) % Eos % (Auto) (1.0-3.0) % Baso % (Auto) (0.0-1.0) % Neut # (Auto) (2.50-7.00) 10^3/uL Lymph # (Auto) (1.00-4.00) 10^3/uL [place] # (Auto) (0.10-0.80) 10^3/uL Eos # (Auto) (0.10-0.30) 10^3/uL Baso # (Auto) (0.00-0.10) 10^3/uL Immature Gran # (Auto) (0.00-0.50) 10^3/uL Sodium (136-145) mmol/L Potassium 3.1 L (3.5-5.1) mmol/L Chloride (98-107) mmol/L Carbon Dioxide (21.0-32.0) mmol/L Anion Gap (5-15) mmol/L BUN (7-18) mg/dL Creatinine (0.51-1.17) mg/dL Est Cr Clr Drug Dosing mL/min Estimated GFR (MDRD) mL/min Glucose (70-140) mg/dL POC Glucose 213 H 242 H (70-140) mg/dL Calcium (8.7-10.3) mg/dL Magnesium (1.8-2.4) mg/dL Total Bilirubin (0.2-1.0) mg/dL AST (15-37) U/L ALT (14-63) U/L Alkaline Phosphatase (46-116) U/L Total Protein (6.4-8.2) g/dL Albumin (3.40-5.00) g/dL 09/06/21 09/06/21 09/06/21 Range/Units 07:14 07:14 07:35 WBC 15.46 H (5.00-10.00) 10^3/uL RBC 3.09 L (3.80-5.50) 10^6/uL Hgb 10.1 L (12.0-16.0) g/dL Hct 29.4 L (37.0-47.0) % MCV 95.1 H (82.0-92.0) fL MCH 32.7 H (27.0-31.0) pg MCHC 34.4 (32.0-36.0) g/dL RDW 12.3 (11.5-14.5) % Plt Count 488 H (150-400) 10^3/uL MPV 9.7 (7.4-10.4) fL Immature Gran % (Auto) 2.1 (0.0-5.0) % Neut % (Auto) 85.3 H (50.0-70.0) % Lymph % (Auto) 4.3 L (20.0-40.0) % [place] % (Auto) 8.0 (2.0-8.0) % Eos % (Auto) 0.2 L (1.0-3.0) % Baso % (Auto) 0.1 (0.0-1.0) % Neut # (Auto) 13.19 H (2.50-7.00) 10^3/uL Lymph # (Auto) 0.67 L (1.00-4.00) 10^3/uL [place] # (Auto) 1.23 H (0.10-0.80) 10^3/uL Eos # (Auto) 0.03 L (0.10-0.30) 10^3/uL Baso # (Auto) 0.01 (0.00-0.10) 10^3/uL Immature Gran # (Auto) 0.33 (0.00-0.50) 10^3/uL Sodium 133 L (136-145) mmol/L Potassium 3.5 (3.5-5.1) mmol/L Chloride 100 (98-107) mmol/L Carbon Dioxide 22.3 (21.0-32.0) mmol/L Anion Gap 14.2 (5-15) mmol/L BUN 11 (7-18) mg/dL Creatinine 0.70 (0.51-1.17) mg/dL Est Cr Clr Drug Dosing 59.65 mL/min Estimated GFR (MDRD) > 60 mL/min Glucose 215 H (70-140) mg/dL POC Glucose 193 H (70-140) mg/dL Calcium 7.8 L (8.7-10.3) mg/dL Magnesium 1.6 L (1.8-2.4) mg/dL Total Bilirubin 0.4 (0.2-1.0) mg/dL AST 17 (15-37) U/L ALT 20 (14-63) U/L Alkaline Phosphatase 51 (46-116) U/L Total Protein 5.6 L (6.4-8.2) g/dL Albumin 1.87 L (3.40-5.00) g/dL [place] Results Last 24 Hours: Microbiology 09/04/21 10:35 Aerobic Blood Culture - Preliminary Blood - Venous - Lab Draw NO GROWTH AFTER 2 DAYS Anaerobic Blood Culture - Preliminary NO GROWTH AFTER 2 DAYS 09/04/21 10:35 Aerobic Blood Culture - Preliminary Blood - Venous NO GROWTH AFTER 2 DAYS Anaerobic Blood Culture - Preliminary NO GROWTH AFTER 2 DAYS 09/04/21 14:15 Urine Culture - Final Urine, Catheterized MIXED CONSTANTINO SUGGESTIVE OF CONTAMINATION. Med Orders - Current: Current Medications Amlodipine Besylate (Amlodipine 5 Mg Tab) 10 mg PO DAILY [facility] Last Admin: 09/06/21 09:37 Dose: 10 mg Documented by: Aspirin (Aspirin 81 Mg Tab.Ec) 81 mg PO DAILY [facility] Last Admin: 09/06/21 09:38 Dose: 81 mg Documented by: Azithromycin (Azithromycin 250 Mg Tab) 500 mg PO DAILY [facility] Stop: 09/07/21 23:59 Last Admin: 09/06/21 09:37 Dose: 500 mg Documented by: Ceftriaxone Sodium (Ceftriaxone 1 Gm Vial) 1 gm IVPUSH Q24H [facility] Last Admin: 09/06/21 09:35 Dose: 1 gm Documented by: Dextrose/Water (50% Dextrose In Water 50 Ml Syringe) 50 ml IVPUSH ASDIRECTED PRN PRN Reason: Hypoglycemia Donepezil HCl (Donepezil 10 Mg Tab) 10 mg PO BEDTIME [facility] Last Admin: 09/05/21 20:58 Dose: 10 mg Documented by: Glucagon (Glucagon,Human Recombinant 1 Mg Vial) 1 mg IM ASDIRECTED PRN PRN Reason: Hypoglycemia Guaifenesin/Dextromethorphan (Guaifenesin/Dextromethorphan 100-10 Mg/5 Ml Soln 5 Ml Cup) 10 ml PO Q4H PRN PRN Reason: Cough Last Admin: 09/06/21 01:18 Dose: 10 ml Documented by: Sodium Chloride (Normal Saline) 50 mls @ 200 mls/min IV ASDIRECTED [facility] Last Admin: 09/04/21 10:56 Dose: 200 mls/min Documented by: Sodium Chloride (Normal Saline) 1,000 mls @ 85 mls/hr IV ASDIRECTED [facility] Last Admin: 09/06/21 01:20 Dose: 85 mls/hr Documented by: Insulin Aspart (Insulin Aspart 100 Units/Ml 3 Ml Pen) 0 unit SUBCUT TIDMEALS [facility]; Protocol Last Admin: 09/06/21 07:40 Dose: 2 units Documented by: Levothyroxine Sodium (Levothyroxine 112 Mcg Tab) 112 mcg PO ACBREAKFAST [facility] Last Admin: 09/06/21 07:40 Dose: 112 mcg Documented by: Metoprolol Succinate (Metoprolol Succinate 25 Mg Tab.Er) 25 mg PO DAILY [facility] Last Admin: 09/06/21 09:38 Dose: 25 mg Documented by: Fenofibrate 160 Mg (Tab Own Med) 0 mg PO DAILY [facility] Last Admin: 09/06/21 09:40 Dose: 160 mg Documented by: Valsartan 160 Mg Tab (Own Med) 0 mg PO DAILY [facility] Last Admin: 09/06/21 09:40 Dose: Not Given Documented by: Ondansetron HCl (Ondansetron 4 Mg/2 Ml Sdv) 4 mg IVPUSH Q8H PRN PRN Reason: Nausea/Vomiting Sertraline HCl (Sertraline 50 Mg Tab) 50 mg PO DAILY [facility] Last Admin: 09/06/21 09:39 Dose: 50 mg Documented by: Sodium Chloride (Sodium Chloride 0.9% 10 Ml Syringe) 10 ml FLUSH Q8HR PRN PRN Reason: keep vein open Last Admin: 09/05/21 23:58 Dose: 10 ml Documented by: Discontinued Medications Ceftriaxone Sodium (Ceftriaxone 1 Gm Vial) 1 gm IVPUSH ONETIME ONE Stop: 09/04/21 12:20 Last Admin: 09/04/21 12:38 Dose: 1 gm Documented by: Azithromycin 500 mg/ Sodium (Chloride) 250 mls @ 250 mls/hr IV ONETIME ONE Stop: 09/04/21 13:18 Last Admin: 09/04/21 13:01 Dose: 250 mls/hr Documented by: Sodium Chloride (Normal Saline) 1,000 mls @ 999 mls/hr IV .BOLUS ONE Stop: 09/04/21 13:21 Last Admin: 09/04/21 12:37 Dose: 999 mls/hr Documented by: Insulin Human Regular (Insulin Regular, Human 100 Units/Ml 10 Ml Vial) 10 unit IV ONETIME ONE Stop: 09/04/21 11:29 Last Admin: 09/04/21 12:03 Dose: 10 units Documented by: Iopamidol (Iopamidol 755 Mg/Ml 75 Ml Bottle) 75 ml IVPUSH ONETIME ONE Stop: 09/04/21 11:40 Last Admin: 09/04/21 19:11 Dose: Not Given Documented by: Potassium Chloride (Potassium Chloride 20 Meq Tab.Er) 40 meq PO ONETIME ONE Stop: 09/05/21 09:26 Last Admin: 09/05/21 10:47 Dose: 40 meq Documented by: Potassium Chloride (Potassium Chloride 20 Meq Tab.Er) 40 meq PO ONETIME ONE Stop: 09/05/21 18:04 Last Admin: 09/05/21 18:14 Dose: 40 meq Documented by: Potassium Chloride (Potassium Chloride 20 Meq Tab.Er) 40 meq PO ONETIME ONE Stop: 09/05/21 19:01 Last Admin: 09/05/21 20:58 Dose: 40 meq Documented by: - Exam Quality Assessment: DVT Prophylaxis (home ASA). No: Supplemental Oxygen General: Alert, Oriented, Cooperative, No Acute Distress HEENT: Pupils Equal, Pupils Reactive, Mucous Membr. Moist/[place] Neck: Supple, Trachea Midline Lungs: Decreased Breath Sounds. No: Crackles, Rales, Wheezing Cardiovascular: Regular Rate, Regular Rhythm, No Murmurs GI/Abdominal Exam: Normal Bowel Sounds, Soft, Non-Tender, No Distention (Female) Exam: Deferred Back Exam: Normal Inspection, Full Range of Motion Extremities: Normal Inspection, Normal Range of Motion, Non-Tender, No Pedal Edema, Normal Capillary Refill Peripheral Pulses: 2+: Dorsalis Pedis (L), Dorsalis Pedis (R) Skin: Warm, Dry, Intact Neurological: No New Focal Deficit Psy/Mental Status: Alert, Normal Affect, Normal Mood - Patient Data Lab Results Last 24 hrs: Laboratory Results - last 24 hr 09/05/21 09/05/21 09/05/21 Range/Units 11:59 17:40 17:52 WBC (5.00-10.00) 10^3/uL RBC (3.80-5.50) 10^6/uL Hgb (12.0-16.0) g/dL Hct (37.0-47.0) % MCV (82.0-92.0) fL MCH (27.0-31.0) pg MCHC (32.0-36.0) g/dL RDW (11.5-14.5) % Plt Count (150-400) 10^3/uL MPV (7.4-10.4) fL Immature Gran % (Auto) (0.0-5.0) % Neut % (Auto) (50.0-70.0) % Lymph % (Auto) (20.0-40.0) % [place] % (Auto) (2.0-8.0) % Eos % (Auto) (1.0-3.0) % Baso % (Auto) (0.0-1.0) % Neut # (Auto) (2.50-7.00) 10^3/uL Lymph # (Auto) (1.00-4.00) 10^3/uL [place] # (Auto) (0.10-0.80) 10^3/uL Eos # (Auto) (0.10-0.30) 10^3/uL Baso # (Auto) (0.00-0.10) 10^3/uL Immature Gran # (Auto) (0.00-0.50) 10^3/uL Sodium (136-145) mmol/L Potassium 3.1 L (3.5-5.1) mmol/L Chloride (98-107) mmol/L Carbon Dioxide (21.0-32.0) mmol/L Anion Gap (5-15) mmol/L BUN (7-18) mg/dL Creatinine (0.51-1.17) mg/dL Est Cr Clr Drug Dosing mL/min Estimated GFR (MDRD) mL/min Glucose (70-140) mg/dL POC Glucose 213 H 242 H (70-140) mg/dL Calcium (8.7-10.3) mg/dL Magnesium (1.8-2.4) mg/dL Total Bilirubin (0.2-1.0) mg/dL AST (15-37) U/L ALT (14-63) U/L Alkaline Phosphatase (46-116) U/L Total Protein (6.4-8.2) g/dL Albumin (3.40-5.00) g/dL 09/06/21 09/06/21 09/06/21 Range/Units 07:14 07:14 07:35 WBC 15.46 H (5.00-10.00) 10^3/uL RBC 3.09 L (3.80-5.50) 10^6/uL Hgb 10.1 L (12.0-16.0) g/dL Hct 29.4 L (37.0-47.0) % MCV 95.1 H (82.0-92.0) fL MCH 32.7 H (27.0-31.0) pg MCHC 34.4 (32.0-36.0) g/dL RDW 12.3 (11.5-14.5) % Plt Count 488 H (150-400) 10^3/uL MPV 9.7 (7.4-10.4) fL Immature Gran % (Auto) 2.1 (0.0-5.0) % Neut % (Auto) 85.3 H (50.0-70.0) % Lymph % (Auto) 4.3 L (20.0-40.0) % [place] % (Auto) 8.0 (2.0-8.0) % Eos % (Auto) 0.2 L (1.0-3.0) % Baso % (Auto) 0.1 (0.0-1.0) % Neut # (Auto) 13.19 H (2.50-7.00) 10^3/uL Lymph # (Auto) 0.67 L (1.00-4.00) 10^3/uL [place] # (Auto) 1.23 H (0.10-0.80) 10^3/uL Eos # (Auto) 0.03 L (0.10-0.30) 10^3/uL Baso # (Auto) 0.01 (0.00-0.10) 10^3/uL Immature Gran # (Auto) 0.33 (0.00-0.50) 10^3/uL Sodium 133 L (136-145) mmol/L Potassium 3.5 (3.5-5.1) mmol/L Chloride 100 (98-107) mmol/L Carbon Dioxide 22.3 (21.0-32.0) mmol/L Anion Gap 14.2 (5-15) mmol/L BUN 11 (7-18) mg/dL Creatinine 0.70 (0.51-1.17) mg/dL Est Cr Clr Drug Dosing 59.65 mL/min Estimated GFR (MDRD) > 60 mL/min Glucose 215 H (70-140) mg/dL POC Glucose 193 H (70-140) mg/dL Calcium 7.8 L (8.7-10.3) mg/dL Magnesium 1.6 L (1.8-2.4) mg/dL Total Bilirubin 0.4 (0.2-1.0) mg/dL AST 17 (15-37) U/L ALT 20 (14-63) U/L Alkaline Phosphatase 51 (46-116) U/L Total Protein 5.6 L (6.4-8.2) g/dL Albumin 1.87 L (3.40-5.00) g/dL Result Diagrams: 09/06/21 07:14 09/06/21 07:14 [place] Results Last 24 hrs: Microbiology 09/04/21 10:35 Aerobic Blood Culture - Preliminary Blood - Venous - Lab Draw NO GROWTH AFTER 2 DAYS Anaerobic Blood Culture - Preliminary NO GROWTH AFTER 2 DAYS 09/04/21 10:35 Aerobic Blood Culture - Preliminary Blood - Venous NO GROWTH AFTER 2 DAYS Anaerobic Blood Culture - Preliminary NO GROWTH AFTER 2 DAYS 09/04/21 14:15 Urine Culture - Final Urine, Catheterized MIXED CONSTANTINO SUGGESTIVE OF CONTAMINATION. Sepsis Event Note - Evaluation Sepsis Screening Result: No Definite Risk - Focused Exam Vital Signs: Vital Signs Temp Pulse Pulse Resp BP BP Pulse Ox 09/06/21 09:38 109 H 125/51 L 09/06/21 09:37 125/51 L 09/06/21 05:54 97.0 F 82 20 137/62 94 L 09/06/21 03:00 98.1 F 106 H 20 133/52 L 95 - Problem List Review Problem List Initiated/Reviewed/Updated: Yes - Assessment Assessment:: #Pneumonia, community acquired -Lactic acid normalized -Continue ceftriaxone and azithromycin -Continue IVF at 85 ml/hr since patient not consuming adequate PO hydration #Hypokalemia -40 meq potassium supplement once -Repeat potassium pending this evening, will supplement as needed #Influenza -No antivirals since onset of symptoms was atleast 4 days prior to admission #Essential hypertension -Hold home antihypertensives (amlodipine, valsartan and metoprolol) for now; will restart as appropriate #Diabetes mellitus -Hold home metformin and sitagliptin -Insulin sliding scale #Anemia -Hgb down to 10.1 from 12.5 this morning -No signs of bleeding ? dilutional -Repeat CBC tomorrow am -Will not order lovenox for DVT prophylaxis for now, only MISBAH skinner, home ASA. CBC, CMP, Mag pending. HPI summary: ED course: Hospital course: 09/06/21: Patient feeling better today. Cough continues with green sputum at times. IS to 750-1000ml. Stools have become firmer than yesterday. Vitals stable: T 97.0, HR 82, BP 137/62, RR 20, 94% on room air. WBC stable 15.46 (85.3% N), Hgb 10.1, Plt 488. Na 133, K 3.5, BUN 11, Creatinine 0.70, GFR > 60, Ca 7.8, Mg 1.6, albumin 1.87. Lung sounds diminished, HR RRR, abdomen soft, NT. IV fluids stopped as patient drinking fluids well today. Hospitalization problems and plan: # Pneumonia, community acquired - CXR indicates # Sepsis # Influenza A - Lactic acid normalized to 1.2 on 09/04/21 - Continue zithromax 500mg PO daily through 09/07 - Continue Rocephin 1g daily - plan to discharge on oral antibiotics - NGTD x1 day - Repeat CBC in am - IS 10x/hr while awake # Hypokalemia; resolved 3.5 this am - Repeat BMP in am # Magnesium; Mg 1.6 today - Start Mag oxide 500mg today - Repeat Mg in am # Malnutrition - BMI 17.4 - Albumin 1.87 today - Start dietary supplementation today - Mechanical [employer]er referral in place on outpatient basis Chronic, stable conditions: # Hypertension - on valsartan 160mg PO daily, metoprolol XL 25mg PO daily, amlodipine 10mg PO daily # Hyperlipidemia - on fenofibrate 160mg PO daily, ASA 81mg PO daily # Diabetes, type II - on januvia 100mg PO daily, metformin XR 500mg PO daily (on hold - sliding scale novolog while in hospital) # Hypothyroidism - on levothyroxine 112mcg PO daily # CKD stage III # Memory loss - on aricept 10mg PO daily # Hypercalcemia # Depression - on zoloft 50mg PO daily # Atopic dermatitis # ETOH use - 1.75L of vodka per week Hospitalization details: # FEN: IV fluids stopped today as patient drinking fluids well orally; Mg 1.6 - supplement ordered today, K 3.5; diabetic diet # PPX: continue ASA 81mg PO daily, misbah skinner # Code status: FULL CODE # Emergency contact: # Disposition: Patient to maintain inpatient status for IV antibiotics and repeat labs in the morning. Possible discharge home if clinical condition im proved on oral antibiotics to complete full course for pneumonia. - Plan Plan:: #Pneumonia, community acquired -Lactic acid normalized -Continue ceftriaxone and azithromycin -Continue IVF at 85 ml/hr since patient not consuming adequate PO hydration #Hypokalemia -40 meq potassium supplement once -Repeat potassium pending this evening, will supplement as needed #Influenza -No antivirals since onset of symptoms was atleast 4 days prior to admission #Essential hypertension -Hold home antihypertensives (amlodipine, valsartan and metoprolol) for now; will restart as appropriate #Diabetes mellitus -Hold home metformin and sitagliptin -Insulin sliding scale #Anemia -Hgb down to 10.1 from 12.5 this morning -No signs of bleeding ? dilutional -Repeat CBC tomorrow am -Will not order lovenox for DVT prophylaxis for now, only MISBAH skinner CBC, CMP, Mag pending.
[2021-09-06] MEDS: Magnesium Oxide 500 MG Tab PO SCH (14:44)
[2021-09-06] MEDS: Donepezil 10 MG Tab PO SCH (20:05)
[2021-09-07] MEDS: Levothyroxine 112 MCG Tab PO SCH (06:35)
[2021-09-07 08:10] LABS: ANION GAP 13.8 mmol/L (5-15); CHLORIDE,CL 97 mmol/L (98-107); SODIUM,NA 132 mmol/L (136-145)
[2021-09-07] MEDS: Insulin Aspart 100 Units/ML 3 ML Pen SUBCUT SCH (09:05)
[2021-09-07] MEDS: Aspirin 81 MG Tab.EC PO SCH (09:08)
[2021-09-07] MEDS: Azithromycin 250 MG Tab PO SCH (09:08)
[2021-09-07] MEDS: amLODIPine 5 MG Tab PO SCH (09:09)
[2021-09-07] MEDS: Magnesium Oxide 500 MG Tab PO SCH (09:09)
[2021-09-07] MEDS: Metoprolol Succinate 25 MG Tab.ER PO SCH (09:11)
[2021-09-07] MEDS: Sertraline 50 MG Tab PO SCH (09:13)
[2021-09-07] MEDS: FENOFIBRATE 160 MG PO SCH (09:14)
[2021-09-07] MEDS: VALSARTAN 160 MG PO SCH (09:15)
[2021-09-07] MEDS: cefTRIAXone 1 GM Vial IVPUSH SCH (09:15)
[2021-09-07] MEDS ORDERED: Potassium Chloride 20 MEQ Tab.ER PO SCH (10:00)
--- NOTE | 2021-09-07 10:43 | PCM.DCSUM1 ---
Discharge Summary - Discharge Data Discharge Date: 09/07/21 Discharge Disposition: Home, Self-Care 01 Condition: Good - Referral to Home Health Primary Care Physician: Deloris Harris NP - Patient Summary/Data Consults: Consultations 09/06/21 08:44 Consult to Dietary [Consult to Relief Charge Nurse] [CONS] Routine - Patient Instructions Diet: Regular Diet as Tolerated, No Alcoholic Beverages Activity: As Tolerated Notify Provider of: Fever - Discharge Plan *PRESCRIPTION DRUG MONITORING PROGRAM REVIEWED*: Not Applicable *COPY OF PRESCRIPTION DRUG MONITORING REPORT IN PATIENT SHAWANDA: Not Applicable Prescriptions/Med Rec: Potassium Chloride [Klor-Con 10] 20 meq PO WITHBREAKFAST 30 Days tab.er Magnesium Oxide 500 mg PO DAILY #30 tablet Home Medications: Home Meds Aspirin [Halfprin] 81 mg PO DAILY 12/08/17 [History] Desoximetasone [Topicort 0.25% Crm] 15 gm TOP BID PRN 12/08/17 [History] Metoprolol Succinate [Toprol Xl] 25 mg PO DAILY 12/08/17 [History] SitaGLIPtin [Januvia] 100 mg PO DAILY 12/08/17 [History] Valsartan 160 mg PO DAILY 12/08/17 [History] amLODIPine Besylate [Amlodipine Besylate] 10 mg PO DAILY 12/08/17 [History] Donepezil HCl [Aricept] 10 mg PO BEDTIME 09/04/21 [History] Fenofibrate 160 mg PO DAILY 09/04/21 [History] Levothyroxine 112 mcg PO ACBREAKFAST 09/04/21 [History] Sertraline [Zoloft] 50 mg PO DAILY 09/04/21 [History] metFORMIN HCl [Metformin HCl ER] 500 mg PO BEDTIME 09/04/21 [History] Magnesium Oxide 500 mg PO DAILY #30 tablet 09/07/21 [Rx] Potassium Chloride [Klor-Con 10] 20 meq PO WITHBREAKFAST 30 Days tab.er 09/07/21 [Rx] Oxygen Therapy Mode: Room Air Referrals: Deloris Harris DRIER OPERATOR [Primary Care Provider] - (Call clinic on Friday morning to make an appointment with Deloris for next week. Come a half an hour early to appointment to get labs drawn. ) - Discharge Summary/Plan Comment DC Time >30 min.: Yes Total # of Minutes for Discharge Time: 35 Discharge Summary/Plan Comment: Date of admission: 09/04/21 Date of discharge: 09/07/21 Admission diagnoses: Influenza, CAP, sepsis, hypokalemia Discharge diagnoses: CAP, influenza, hypokalemia, hypomagnesemia Consultations: Outpatient referral placed for dietary at [facility] and alcohol abuse outpatient treatment to [facility] in [place], [place] Procedures: None Hospital course: ED Course: 09/04/21: Presented to ER with chills, cough fatigue, increase blood sugar and poor appetite. CXR and CT done in ER showed multiple bilateral infiltrated. Ceftriaxone and azithromycin given in ER. Positive for influenza A. 09/05/21: Patient denies any new symptoms since admission. Receiving PO azithromycin and IV ceftriaxone. Lactic acid normalized. Continuing with IV fluids. Given total of 80 mEq of potassium chloride. 09/06/21: WBC trending down. Continues with cough. Using IS with volumes of 750- 1000 acheved. Stools more firm. Vital signs stable. On room air with O2 sat of 9 4%. IV fluids D/C due to improving appetitie and drinking adequate PO fluids. 09/07/21: BC negative X 3 days. WBC down to 14.26. Hgb stable at 10.3. K of 3.3. Mg 1.5. Albumin 1.91. Total portein 5.8. Patient feeling well. Denies SOB, chest pain, cough, fever, chills, fatigue. Has completed 3 day course of azithromycin. Given magnesium oxide 500 mg daily, potassium chloride 20 mEq daily. Will con tinue on these supplements outpatient. Discharge and follow-up recommendations: - Discharge to home - Medication changes at discharge: Start on potassium chloride 20 mEq daily, magnesium oxide 500 mg daily, amoxicllin 875 mg BID for one day to complete 5 day course. - Follow-up with Deloris Harris CNP next week. Lab work prior to appointment. Dietary and alcohol abuse treatment referral placed for outpatient treatment. - Pending results: None - General Info Date of Service: 09/07/21 Functional Status: Reports: Pain Controlled, Tolerating Diet, Ambulating, Incentive Spirometry - Review of Systems General: Reports: No Symptoms HEENT: Reports: No Symptoms Pulmonary: Reports: No Symptoms Cardiovascular: Reports: No Symptoms Gastrointestinal: Reports: No Symptoms - Patient Data Vitals - Most Recent: Last Vital Signs Temp 97 F 09/07/21 06:38 Pulse 100 09/07/21 09:11 Resp 18 09/07/21 06:38 BP 126/57 L 09/07/21 09:11 Pulse Ox 94 L 09/07/21 06:38 Weight - Most Recent: 111 lb 6.4 oz I&O - Last 24 hours: Intake & Output 09/06/21 09/07/21 09/07/21 22:59 06:59 14:59 Intake Total 1560 200 Balance 1560 200 Lab Results - Last 24 hrs: Laboratory Results - last 24 hr 09/06/21 09/06/21 09/07/21 Range/Units 11:32 17:56 07:20 WBC 14.26 H (5.00-10.00) 10^3/uL RBC 3.19 L (3.80-5.50) 10^6/uL Hgb 10.3 L (12.0-16.0) g/dL Hct 30.4 L (37.0-47.0) % MCV 95.3 H (82.0-92.0) fL MCH 32.3 H (27.0-31.0) pg MCHC 33.9 (32.0-36.0) g/dL RDW 12.4 (11.5-14.5) % Plt Count 586 H D (150-400) 10^3/uL MPV 10.2 (7.4-10.4) fL Immature Gran % (Auto) 2.5 (0.0-5.0) % Neut % (Auto) 85.0 H (50.0-70.0) % Lymph % (Auto) 5.3 L (20.0-40.0) % [place] % (Auto) 6.7 (2.0-8.0) % Eos % (Auto) 0.3 L (1.0-3.0) % Baso % (Auto) 0.2 (0.0-1.0) % Neut # (Auto) 12.11 H (2.50-7.00) 10^3/uL Lymph # (Auto) 0.76 L (1.00-4.00) 10^3/uL [place] # (Auto) 0.96 H (0.10-0.80) 10^3/uL Eos # (Auto) 0.04 L (0.10-0.30) 10^3/uL Baso # (Auto) 0.03 (0.00-0.10) 10^3/uL Immature Gran # (Auto) 0.36 (0.00-0.50) 10^3/uL Sodium (136-145) mmol/L Potassium (3.5-5.1) mmol/L Chloride (98-107) mmol/L Carbon Dioxide (21.0-32.0) mmol/L Anion Gap (5-15) mmol/L BUN (7-18) mg/dL Creatinine (0.51-1.17) mg/dL Est Cr Clr Drug Dosing mL/min Estimated GFR (MDRD) mL/min Glucose (70-140) mg/dL POC Glucose 266 H 214 H (70-140) mg/dL Calcium (8.7-10.3) mg/dL Magnesium (1.8-2.4) mg/dL Total Bilirubin (0.2-1.0) mg/dL AST (15-37) U/L ALT (14-63) U/L Alkaline Phosphatase (46-116) U/L Total Protein (6.4-8.2) g/dL Albumin (3.40-5.00) g/dL 09/07/21 09/07/21 Range/Units 07:20 08:03 WBC (5.00-10.00) 10^3/uL RBC (3.80-5.50) 10^6/uL Hgb (12.0-16.0) g/dL Hct (37.0-47.0) % MCV (82.0-92.0) fL MCH (27.0-31.0) pg MCHC (32.0-36.0) g/dL RDW (11.5-14.5) % Plt Count (150-400) 10^3/uL MPV (7.4-10.4) fL Immature Gran % (Auto) (0.0-5.0) % Neut % (Auto) (50.0-70.0) % Lymph % (Auto) (20.0-40.0) % [place] % (Auto) (2.0-8.0) % Eos % (Auto) (1.0-3.0) % Baso % (Auto) (0.0-1.0) % Neut # (Auto) (2.50-7.00) 10^3/uL Lymph # (Auto) (1.00-4.00) 10^3/uL [place] # (Auto) (0.10-0.80) 10^3/uL Eos # (Auto) (0.10-0.30) 10^3/uL Baso # (Auto) (0.00-0.10) 10^3/uL Immature Gran # (Auto) (0.00-0.50) 10^3/uL Sodium 132 L (136-145) mmol/L Potassium 3.3 L (3.5-5.1) mmol/L Chloride 97 L (98-107) mmol/L Carbon Dioxide 24.5 (21.0-32.0) mmol/L Anion Gap 13.8 (5-15) mmol/L BUN 8 (7-18) mg/dL Creatinine 0.71 (0.51-1.17) mg/dL Est Cr Clr Drug Dosing 58.81 mL/min Estimated GFR (MDRD) > 60 mL/min Glucose 214 H (70-140) mg/dL POC Glucose 187 H (70-140) mg/dL Calcium 7.9 L (8.7-10.3) mg/dL Magnesium 1.5 L (1.8-2.4) mg/dL Total Bilirubin 0.4 (0.2-1.0) mg/dL AST 21 (15-37) U/L ALT 18 (14-63) U/L Alkaline Phosphatase 53 (46-116) U/L Total Protein 5.8 L (6.4-8.2) g/dL Albumin 1.91 L (3.40-5.00) g/dL SHAYNE Results - Last 24 hrs: Microbiology 09/04/21 10:35 Aerobic Blood Culture - Preliminary Blood - Venous - Lab Draw NO GROWTH AFTER 2 DAYS Anaerobic Blood Culture - Preliminary NO GROWTH AFTER 2 DAYS 09/04/21 10:35 Aerobic Blood Culture - Preliminary Blood - Venous NO GROWTH AFTER 2 DAYS Anaerobic Blood Culture - Preliminary NO GROWTH AFTER 2 DAYS Med Orders - Current: Current Medications Amlodipine Besylate (Amlodipine 5 Mg Tab) 10 mg PO DAILY [facility] Last Admin: 09/07/21 09:09 Dose: 10 mg Documented by: Aspirin (Aspirin 81 Mg Tab.Ec) 81 mg PO DAILY [facility] Last Admin: 09/07/21 09:08 Dose: 81 mg Documented by: Azithromycin (Azithromycin 250 Mg Tab) 500 mg PO DAILY [facility] Stop: 09/07/21 23:59 Last Admin: 09/07/21 09:08 Dose: 500 mg Documented by: Ceftriaxone Sodium (Ceftriaxone 1 Gm Vial) 1 gm IVPUSH Q24H [facility] Last Admin: 09/07/21 09:15 Dose: 1 gm Documented by: Dextrose/Water (50% Dextrose In Water 50 Ml Syringe) 50 ml IVPUSH ASDIRECTED PRN PRN Reason: Hypoglycemia Donepezil HCl (Donepezil 10 Mg Tab) 10 mg PO BEDTIME [facility] Last Admin: 09/06/21 20:05 Dose: 10 mg Documented by: Glucagon (Glucagon,Human Recombinant 1 Mg Vial) 1 mg IM ASDIRECTED PRN PRN Reason: Hypoglycemia Guaifenesin/Dextromethorphan (Guaifenesin/Dextromethorphan 100-10 Mg/5 Ml Soln 5 Ml Cup) 10 ml PO Q4H PRN PRN Reason: Cough Last Admin: 09/06/21 01:18 Dose: 10 ml Documented by: Sodium Chloride (Normal Saline) 50 mls @ 200 mls/min IV ASDIRECTED [facility] Last Admin: 09/04/21 10:56 Dose: 200 mls/min Documented by: Insulin Aspart (Insulin Aspart 100 Units/Ml 3 Ml Pen) 0 unit SUBCUT TIDMEALS [facility]; Protocol Last Admin: 09/07/21 09:05 Dose: 2 units Documented by: Levothyroxine Sodium (Levothyroxine 112 Mcg Tab) 112 mcg PO ACBREAKFAST [facility] Last Admin: 09/07/21 06:35 Dose: 112 mcg Documented by: Magnesium Oxide (Magnesium Oxide 500 Mg Tab) 500 mg PO DAILY [facility] Last Admin: 09/07/21 09:09 Dose: 500 mg Documented by: Metoprolol Succinate (Metoprolol Succinate 25 Mg Tab.Er) 25 mg PO DAILY [facility] Last Admin: 09/07/21 09:11 Dose: 25 mg Documented by: Fenofibrate 160 Mg (Tab Own Med) 0 mg PO DAILY [facility] Last Admin: 09/07/21 09:14 Dose: 160 mg Documented by: Valsartan 160 Mg Tab (Own Med) 0 mg PO DAILY [facility] Last Admin: 09/07/21 09:15 Dose: 160 mg Documented by: Ondansetron HCl (Ondansetron 4 Mg/2 Ml Sdv) 4 mg IVPUSH Q8H PRN PRN Reason: Nausea/Vomiting Potassium Chloride (Potassium Chloride 20 Meq Tab.Er) 20 meq PO WITHBREAKFAST [facility] Sertraline HCl (Sertraline 50 Mg Tab) 50 mg PO DAILY [facility] Last Admin: 09/07/21 09:13 Dose: 50 mg Documented by: Sodium Chloride (Sodium Chloride 0.9% 10 Ml Syringe) 10 ml FLUSH Q8HR PRN PRN Reason: keep vein open Last Admin: 09/05/21 23:58 Dose: 10 ml Documented by: Discontinued Medications Ceftriaxone Sodium (Ceftriaxone 1 Gm Vial) 1 gm IVPUSH ONETIME ONE Stop: 09/04/21 12:20 Last Admin: 09/04/21 12:38 Dose: 1 gm Documented by: Azithromycin 500 mg/ Sodium (Chloride) 250 mls @ 250 mls/hr IV ONETIME ONE Stop: 09/04/21 13:18 Last Admin: 09/04/21 13:01 Dose: 250 mls/hr Documented by: Sodium Chloride (Normal Saline) 1,000 mls @ 999 mls/hr IV .BOLUS ONE Stop: 09/04/21 13:21 Last Admin: 09/04/21 12:37 Dose: 999 mls/hr Documented by: Sodium Chloride (Normal Saline) 1,000 mls @ 85 mls/hr IV ASDIRECTED [facility] Last Admin: 09/06/21 01:20 Dose: 85 mls/hr Documented by: Insulin Human Regular (Insulin Regular, Human 100 Units/Ml 10 Ml Vial) 10 unit IV ONETIME ONE Stop: 09/04/21 11:29 Last Admin: 09/04/21 12:03 Dose: 10 units Documented by: Iopamidol (Iopamidol 755 Mg/Ml 75 Ml Bottle) 75 ml IVPUSH ONETIME ONE Stop: 09/04/21 11:40 Last Admin: 09/04/21 19:11 Dose: Not Given Documented by: Potassium Chloride (Potassium Chloride 20 Meq Tab.Er) 40 meq PO ONETIME ONE Stop: 09/05/21 09:26 Last Admin: 09/05/21 10:47 Dose: 40 meq Documented by: Potassium Chloride (Potassium Chloride 20 Meq Tab.Er) 40 meq PO ONETIME ONE Stop: 09/05/21 18:04 Last Admin: 09/05/21 18:14 Dose: 40 meq Documented by: Potassium Chloride (Potassium Chloride 20 Meq Tab.Er) 40 meq PO ONETIME ONE Stop: 09/05/21 19:01 Last Admin: 09/05/21 20:58 Dose: 40 meq Documented by: - Exam General: Reports: Alert, Oriented Neck: Reports: Supple Lungs: Reports: Clear to Auscultation, Normal Respiratory Effort, Decreased Breath Sounds Cardiovascular: Reports: Regular Rate, Regular Rhythm GI/Abdominal Exam: Normal Bowel Sounds, Soft, Non-Tender Extremities: Normal Inspection, No Pedal Edema Skin: Reports: Warm, Dry Neurological: Reports: No New Focal Deficit Psy/Mental Status: Reports: Alert, Normal Affect, Normal Mood
== END 2021-09-07 11:10 | disposition home or self-care (01) | DRG 871 ==
LOC: KA.ED 10:14 → KA.MS 13:40
PROVIDERS: ADMIT Student in an Organized Health Care Education/Training Program; ATTEND Student in an Organized Health Care Education/Training Program
DX: A41.9 Sepsis, unspecified organism (principal); J18.9 Pneumonia, unspecified organism; J10.00 Influenza due to other identified influenza virus with unspecified type of pneumonia; E46 Unspecified protein-calorie malnutrition; Z68.1 Body mass index [BMI] 19.9 or less, adult; E87.6 Hypokalemia; E83.42 Hypomagnesemia; R05.9 Cough, unspecified; R79.89 Other specified abnormal findings of blood chemistry; E78.5 Hyperlipidemia, unspecified; R53.83 Other fatigue; I12.9 Hypertensive chronic kidney disease with stage 1 through stage 4 chronic kidney disease, or unspecified chronic kidney disease; N18.30 Chronic kidney disease, stage 3 unspecified; E83.52 Hypercalcemia; F32.A Depression, unspecified; L20.9 Atopic dermatitis, unspecified; R41.3 Other amnesia; D64.9 Anemia, unspecified; R50.9 Fever, unspecified; E11.65 Type 2 diabetes mellitus with hyperglycemia; R79.1 Abnormal coagulation profile; H54.7 Unspecified visual loss; Z87.891 Personal history of nicotine dependence; H91.90 Unspecified hearing loss, unspecified ear; I10 Essential (primary) hypertension; E78.00 Pure hypercholesterolemia, unspecified; E03.9 Hypothyroidism, unspecified; E21.3 Hyperparathyroidism, unspecified; Z79.84 Long term (current) use of oral hypoglycemic drugs; Z79.82 Long term (current) use of aspirin; Z79.890 Hormone replacement therapy; Z79.899 Other long term (current) drug therapy; Z88.1 Allergy status to other antibiotic agents; Z88.2 Allergy status to sulfonamides; Z88.8 Allergy status to other drugs, medicaments and biological substances; Z20.822 Contact with and (suspected) exposure to COVID-19
CPT/HCPCS: 0241U; 36415; 71045; 71275; 80053; 80307; 81001; 82947; 83605; 83735; 83880; 84132; 84484; 85025; 85379; 86140; 87040; 87086; 93010; 96365; 96375; 99284; 99285; A9270-GY; J0456; J0696; J1815-GY; J7030; J7050; Q9967

== ENCOUNTER 2021-09-08 19:01 | Emergency (ER) | payer MEDICARE, BC ==
[2021-09-08] MEDS ORDERED: Sodium Chloride 0.9% 10 ML Syringe FLUSH PRN (19:07)
[2021-09-08] MEDS ORDERED: Glucagon,Human Recombinant 1 MG Vial IM PRN (19:09)
[2021-09-08] MEDS ORDERED: 50% Dextrose in Water 50 ML Syringe IVPUSH PRN (19:09)
[2021-09-08] MEDS: Sodium Chloride 0.9% 1,000 ML IV ONE (19:15)
[2021-09-08] MEDS: Insulin Lispro 100 Unit/ML 3 ML KwikPen SUBCUT ONE (19:19)
[2021-09-08 19:40] LABS: ANION GAP 16.2 mmol/L (5-15); CHLORIDE,CL 91 mmol/L (98-107); SODIUM,NA 124 mmol/L (136-145)
--- NOTE | 2021-09-08 19:54 | EDM.PDOC ---
ED HPI GENERAL MEDICAL PROBLEM - General Chief Complaint: General Stated Complaint: Hyperglycemia Time Seen by Provider: 09/08/21 19:31 Source of Information: Reports: Patient, Significant Other History Limitations: Reports: No Limitations - History of Present Illness INITIAL COMMENTS - FREE TEXT/NARRATIVE: Patient presents with hyperglycemia; glucose 452. About five hours ago (at 1400), it was 394, then 304, then 252, then she napped and on awakening was 452 so her brought her in. She was hospitalized from 09/04-09/07 and went home yesterday morning. She was hospitalized with pneumonia and insulin was used for glucose control while hospitalized; however she only uses metformin and Januvia at home. While IP, her CAP was treated with Zithromax and Rocephin. On discharge yesterday she took Amoxicillin, last dose was this evening. She was quite sleepy and slept most of the day. - Related Data Allergies Allergy/AdvReac Type Severity Reaction Status Date / Time Xjekroh-EOQ-CcY Reductase Allergy ELEVATED Verified 09/08/21 19:06 Inhibitor LIVER [Lqdeqkf-Lvb-Fjp Reductase ENZYMES Inhibitor] sulfamethizole Allergy UNKNOWN Verified 09/08/21 19:06 sulfamethoxazole Allergy Rash Verified 09/08/21 19:06 [From Bactrim] trimethoprim [From Bactrim] Allergy Rash Verified 09/08/21 19:06 Home Meds: Home Meds Aspirin [Halfprin] 81 mg PO DAILY@12/08/17 [History] Desoximetasone [Topicort 0.25% Crm] 15 gm TOP BID PRN 12/08/17 [History] Metoprolol Succinate [Toprol Xl] 25 mg PO DAILY@12/08/17 [History] SitaGLIPtin [Januvia] 100 mg PO DAILY 12/08/17 [History] Valsartan 160 mg PO DAILY@12/08/17 [History] amLODIPine Besylate [Amlodipine Besylate] 10 mg PO DAILY@12/08/17 [History] Donepezil HCl [Aricept] 10 mg PO BEDTIME 09/04/21 [History] Fenofibrate 160 mg PO DAILY 09/04/21 [History] Levothyroxine 112 mcg PO DAILY@09/04/21 [History] Sertraline [Zoloft] 50 mg PO DAILY 09/04/21 [History] metFORMIN HCl [Metformin HCl ER] 500 mg PO BEDTIME 09/04/21 [History] Magnesium Oxide 500 mg PO DAILY #30 tablet 09/07/21 [Rx] Potassium Chloride [Klor-Con 10] 20 meq PO WITHBREAKFAST 30 Days tab.er 09/07/21 [Rx] Past Medical History HEENT History: Reports: Cataract, Hard of Hearing, Impaired Vision Cardiovascular History: Reports: High Cholesterol, Hypertension Gastrointestinal History: Reports: None Genitourinary History: Reports: None, Other (See Below) Other Genitourinary History: Chronic Kidney Disease Stage 3 FIRST RESPONDER History: Reports: Endocrine/Metabolic History: Reports: Diabetes, Type II, Hyperparathyroidism, Hypothyroidism, Other (See Below) Other Endocrine/Metabolic History: hypercalcemia Dermatologic History: Reports: Other (See Below) Other Dermatologic History: Patient has dry skin and itching on upper back with scarring and open wounds - Infectious Disease History Infectious Disease History: Reports: Chicken Pox, Measles, Mumps - Past Surgical History Head Surgeries/Procedures: Reports: None HEENT Surgical History: Reports: Cataract Surgery, Tonsillectomy Cardiovascular Surgical History: Reports: None GI Surgical History: Reports: Appendectomy Female Surgical History: Reports: Hysterectomy, Tubal Ligation Endocrine Surgical History: Reports: None Dermatological Surgical History: Reports: None Social & Family History - Family History Family Medical History: No Pertinent Family History - Tobacco Use Tobacco Use Status *Q: Former Tobacco User Used Tobacco, but Quit: Yes Month/Year Tobacco Last Used: 2006 - Caffeine Use Caffeine Use: Reports: None - Alcohol Use Days Per Week of Alcohol Use: 7 Number of Drinks Per Day: 8 Total Drinks Per Week: 56 - Recreational Drug Use Recreational Drug Use: No ED ROS GENERAL - Review of Systems Review Of Systems: See Below Constitutional: Reports: Fatigue (with the high glucose), Decreased Appetite. Denies: Fever, Malaise, Weakness HEENT: Denies: Ear Pain, Throat Pain, Vision Change Respiratory: Reports: Cough (slight but improving). Denies: Shortness of Breath Cardiovascular: Denies: Chest Pain, Lightheadedness, Syncope GI/Abdominal: Denies: Abdominal Pain, Diarrhea, Vomiting : Denies: Dysuria, Flank Pain Musculoskeletal: Denies: Neck Pain, Shoulder Pain, Arm Pain, Back Pain Skin: Denies: Cyanosis, Jaundice, Mottled, Pallor, Diaphoresis Neurological: Denies: Seizure, Syncope, Trouble Speaking Psychiatric: Denies: Agitation, Anxiety ED EXAM, GENERAL - Physical Exam Exam: See Below Exam Limited By: No Limitations General Appearance: Alert, WD/WN, No Apparent Distress Eye Exam: Bilateral Eye: EOMI, Normal Inspection, PERRL Ears: Normal External Exam, Hearing Grossly Normal Nose: Normal Inspection, No Blood Throat/Mouth: Normal Inspection, Normal Lips, Normal Voice, No Airway Compromise Head: Atraumatic, Normocephalic Neck: Normal Inspection, Full Range of Motion Respiratory/Chest: No Respiratory Distress, Lungs Clear, Normal Breath Sounds Cardiovascular: Regular Rate, Rhythm, No Murmur GI/Abdominal: Normal Bowel Sounds, Soft, Non-Tender, No Organomegaly, No Diste ntion, No Abnormal Bruit Back Exam: Normal Inspection, Full Range of Motion. No: CVA Tenderness (L), CVA Tenderness (R) Extremities: Normal Inspection, Normal Range of Motion Neurological: Alert, Oriented, Normal Cognition, No Motor/Sensory Deficits Psychiatric: Normal Affect, Normal Mood Skin Exam: Warm, Dry, Intact, Normal Color, No Rash Course - Vital Signs Last Recorded V/S: Last Vital Signs Temp 98.2 F 09/08/21 19:02 Pulse 87 09/08/21 20:51 Resp 20 09/08/21 20:51 BP 105/50 L 09/08/21 20:51 Pulse Ox 94 L 09/08/21 20:51 - Orders/Labs/Meds Orders: Active Orders 24 hr Category Date Time Status Dextrose 50% in Water Med 09/08/21 19:09 Active 50 ml IVPUSH ASDIRECTED PRN Glucagon,Human Recombinant [GlucaGen] Med 09/08/21 19:09 Active 1 mg IM ASDIRECTED PRN Sodium Chloride 0.9% [Saline Flush] Med 09/08/21 19:07 Active 10 ml FLUSH Q8HR PRN Peripheral IV Insertion Adult [OM.PC] Routine Oth 09/08/21 19:07 Ordered Medication Orders Dextrose/Water (50% Dextrose In Water 50 Ml Syringe) 50 ml IVPUSH ASDIRECTED PRN PRN Reason: Hypoglycemia Glucagon (Glucagon,Human Recombinant 1 Mg Vial) 1 mg IM ASDIRECTED PRN PRN Reason: Hypoglycemia Sodium Chloride (Sodium Chloride 0.9% 10 Ml Syringe) 10 ml FLUSH Q8HR PRN PRN Reason: keep vein open Labs: Laboratory Tests 09/08/21 09/08/21 09/08/21 Range/Units 19:07 19:15 19:15 WBC 14.65 H (5.00-10.00) 10^3/uL RBC 3.26 L (3.80-5.50) 10^6/uL Hgb 10.6 L (12.0-16.0) g/dL Hct 31.4 L (37.0-47.0) % MCV 96.3 H (82.0-92.0) fL MCH 32.5 H (27.0-31.0) pg MCHC 33.8 (32.0-36.0) g/dL RDW 12.4 (11.5-14.5) % Plt Count 640 H (150-400) 10^3/uL MPV 9.9 (7.4-10.4) fL Immature Gran % (Auto) 3.3 (0.0-5.0) % Neut % (Auto) 85.4 H (50.0-70.0) % Lymph % (Auto) 4.0 L (20.0-40.0) % [place] % (Auto) 6.8 (2.0-8.0) % Eos % (Auto) 0.3 L (1.0-3.0) % Baso % (Auto) 0.2 (0.0-1.0) % Neut # (Auto) 12.52 H (2.50-7.00) 10^3/uL Lymph # (Auto) 0.58 L (1.00-4.00) 10^3/uL [place] # (Auto) 1.00 H (0.10-0.80) 10^3/uL Eos # (Auto) 0.04 L (0.10-0.30) 10^3/uL Baso # (Auto) 0.03 (0.00-0.10) 10^3/uL Immature Gran # (Auto) 0.48 (0.00-0.50) 10^3/uL Sodium 124 L (136-145) mmol/L Potassium 4.2 (3.5-5.1) mmol/L Chloride 91 L (98-107) mmol/L Carbon Dioxide 21.0 (21.0-32.0) mmol/L Anion Gap 16.2 H (5-15) mmol/L BUN 14 (7-18) mg/dL Creatinine 0.87 (0.51-1.17) mg/dL Est Cr Clr Drug Dosing 49.55 mL/min Estimated GFR (MDRD) > 60 mL/min Glucose 454 H (70-140) mg/dL POC Glucose 419 H (70-140) mg/dL Calcium 8.6 L (8.7-10.3) mg/dL Total Bilirubin 0.4 (0.2-1.0) mg/dL AST 23 (15-37) U/L ALT 20 (14-63) U/L Alkaline Phosphatase 63 (46-116) U/L Total Protein 6.4 (6.4-8.2) g/dL Albumin 2.13 L (3.40-5.00) g/dL 09/08/21 09/08/21 Range/Units 19:52 20:34 WBC (5.00-10.00) 10^3/uL RBC (3.80-5.50) 10^6/uL Hgb (12.0-16.0) g/dL Hct (37.0-47.0) % MCV (82.0-92.0) fL MCH (27.0-31.0) pg MCHC (32.0-36.0) g/dL RDW (11.5-14.5) % Plt Count (150-400) 10^3/uL MPV (7.4-10.4) fL Immature Gran % (Auto) (0.0-5.0) % Neut % (Auto) (50.0-70.0) % Lymph % (Auto) (20.0-40.0) % [place] % (Auto) (2.0-8.0) % Eos % (Auto) (1.0-3.0) % Baso % (Auto) (0.0-1.0) % Neut # (Auto) (2.50-7.00) 10^3/uL Lymph # (Auto) (1.00-4.00) 10^3/uL [place] # (Auto) (0.10-0.80) 10^3/uL Eos # (Auto) (0.10-0.30) 10^3/uL Baso # (Auto) (0.00-0.10) 10^3/uL Immature Gran # (Auto) (0.00-0.50) 10^3/uL Sodium (136-145) mmol/L Potassium (3.5-5.1) mmol/L Chloride (98-107) mmol/L Carbon Dioxide (21.0-32.0) mmol/L Anion Gap (5-15) mmol/L BUN (7-18) mg/dL Creatinine (0.51-1.17) mg/dL Est Cr Clr Drug Dosing mL/min Estimated GFR (MDRD) mL/min Glucose (70-140) mg/dL POC Glucose 366 H 232 H (70-140) mg/dL Calcium (8.7-10.3) mg/dL Total Bilirubin (0.2-1.0) mg/dL AST (15-37) U/L ALT (14-63) U/L Alkaline Phosphatase (46-116) U/L Total Protein (6.4-8.2) g/dL Albumin (3.40-5.00) g/dL Meds: Medications Generic Name Dose Route Start Last Admin Trade Name Freq PRN Reason Stop Dose Admin Dextrose/Water 50 ml 09/08/21 19:09 50% Dextrose In Water 50 Ml Syringe IVPUSH ASDIRECTED PRN Hypoglycemia Glucagon 1 mg 09/08/21 19:09 Glucagon,Human Recombinant 1 Mg Vial IM ASDIRECTED PRN Hypoglycemia Sodium Chloride 10 ml 09/08/21 19:07 Sodium Chloride 0.9% 10 Ml Syringe FLUSH Q8HR PRN keep vein open Discontinued Medications Generic Name Dose Route Start Last Admin Trade Name Freq PRN Reason Stop Dose Admin Sodium Chloride 1,000 mls @ 999 mls/hr 09/08/21 19:07 09/08/21 19:15 Normal Saline IV 09/08/21 20:07 999 mls/hr .BOLUS ONE Administration Insulin Human Lispro 5 unit 09/08/21 19:09 09/08/21 19:19 Insulin Lispro 100 Unit/Ml 3 Ml Kwikpen SUBCUT 09/08/21 19:10 5 unit ONETIME ONE Administration - Re-Assessments/Exams Free Text/Narrative Re-Assessment/Exam: 09/08/21 20:38 On arrival lab glucose was 454 and POC 419. After Humalog 5, 30 minutes later was 366, then 232 another 40 minutes later. Patient is awake and alert. Also gave a liter of NS. WBC is 14.6; was in 14.2-17.2 while inpatient last 4 days. Glucose while IP was 150-260 range on insulin. Just on metformin and Januvia at home. 09/08/21 20:[address] Castano, who discussed with Holley Nicholas NP, who discussed with Dr. Ervin. [facility] providers aren't admitting new patients this weekend, but since this was a potential readmission from discharge yesterday, I wasn't sure what the plan was; hence the involvement of multiple providers. Holley had discharged patient yesterday and after consulting with Dr. Tristan, informed us that the patient is okay to go home but should take her metformin twice daily instead of qd. She also should see her PCP on Friday. I discussed this plan, along with the findings, with patient and her . She will take a second dose of metformin when she gets home tonight, then bid tomorrow. Discussed with what would be reasons to come back to ER if worsening before Friday. They are comfortable going home tonight. Stable at discharge. Departure - Departure Time of Disposition: 20:52 Disposition: Home, Self-Care Condition: Good Clinical Impression: Neutrophilic leukocytosis Hyperglycemia due to type 2 diabetes mellitus Qualifiers: Diabetes mellitus retirement insulin use: without iron installer use Qualified Code(s): E11.65 - Type 2 diabetes mellitus with hyperglycemia - Discharge Information Referrals: Deloris Harris [employer]ATOR [Primary Care Provider] - Forms: ED Department Discharge Additional Instructions: Drink 8 cups of water daily. Take your metformin dose twice each day instead of once daily until you see your PCP on Friday. If worsening before Friday, come back to ER as needed. Sepsis Event Note (ED) - Evaluation Sepsis Screening Result: No Definite Risk - Focused Exam Vital Signs: Vital Signs Temp Pulse Resp BP Pulse Ox 09/08/21 20:51 87 20 105/50 L 94 L 09/08/21 19:40 99 18 123/65 93 L 09/08/21 19:02 98.2 F 111 H 18 104/56 L 95 - My Orders Last 24 Hours: My Active Orders 09/08/21 19:07 Sodium Chloride 0.9% [Saline Flush] 10 ml FLUSH Q8HR PRN Peripheral IV Insertion Adult [OM.PC] Routine 09/08/21 19:09 Dextrose 50% in Water 50 ml IVPUSH ASDIRECTED PRN Glucagon,Human Recombinant [GlucaGen] 1 mg IM ASDIRECTED PRN - Assessment/Plan Last 24 Hours: My Active Orders 09/08/21 19:07 Sodium Chloride 0.9% [Saline Flush] 10 ml FLUSH Q8HR PRN Peripheral IV Insertion Adult [OM.PC] Routine 09/08/21 19:09 Dextrose 50% in Water 50 ml IVPUSH ASDIRECTED PRN Glucagon,Human Recombinant [GlucaGen] 1 mg IM ASDIRECTED PRN
== END 2021-09-08 21:00 | disposition home or self-care (01) ==
LOC: KA.ED 19:01
DX: E11.65 Type 2 diabetes mellitus with hyperglycemia (principal); E11.22 Type 2 diabetes mellitus with diabetic chronic kidney disease; E78.00 Pure hypercholesterolemia, unspecified; I12.9 Hypertensive chronic kidney disease with stage 1 through stage 4 chronic kidney disease, or unspecified chronic kidney disease; N18.30 Chronic kidney disease, stage 3 unspecified; E03.9 Hypothyroidism, unspecified; D72.828 Other elevated white blood cell count; Z88.1 Allergy status to other antibiotic agents; Z88.8 Allergy status to other drugs, medicaments and biological substances; Z79.82 Long term (current) use of aspirin; Z79.84 Long term (current) use of oral hypoglycemic drugs; Z87.891 Personal history of nicotine dependence
CPT/HCPCS: 36415; 80053; 82947; 85025; 99284; J1815-GY; J7030

== ENCOUNTER 2023-02-10 08:26 | Day surgery (SDC) | payer MEDICARE, BC ==
[2023-02-10] MEDS ORDERED: Sodium Chloride 0.9% 1,000 ML IV SCH (08:30)
[2023-02-10] MEDS ORDERED: Sodium Chloride 0.9% 10 ML Syringe FLUSH PRN (08:30)
[2023-02-10] MEDS ORDERED: Propofol 200 MG/20 ML SDV ONE (09:25)
[2023-02-10] MEDS ORDERED: Midazolam 1 MG/ML 2 ML SDV ONE (09:25)
== END 2023-02-10 11:10 | disposition home or self-care (01) ==
LOC: KA.SDS 08:26
PROVIDERS: ATTEND Family Medicine
DX: Z12.11 Encounter for screening for malignant neoplasm of colon (principal); I12.9 Hypertensive chronic kidney disease with stage 1 through stage 4 chronic kidney disease, or unspecified chronic kidney disease; E11.22 Type 2 diabetes mellitus with diabetic chronic kidney disease; N18.32 Chronic kidney disease, stage 3b; E11.65 Type 2 diabetes mellitus with hyperglycemia; R41.81 Age-related cognitive decline; E78.5 Hyperlipidemia, unspecified; R42 Dizziness and giddiness; E03.9 Hypothyroidism, unspecified; R74.01 Elevation of levels of liver transaminase levels; F32.A Depression, unspecified; G31.84 Mild cognitive impairment of uncertain or unknown etiology; D64.9 Anemia, unspecified; F10.21 Alcohol dependence, in remission; Z79.4 Long term (current) use of insulin; Z79.899 Other long term (current) drug therapy; Z79.84 Long term (current) use of oral hypoglycemic drugs; Z79.82 Long term (current) use of aspirin; Z87.891 Personal history of nicotine dependence; Z98.51 Tubal ligation status; Z90.710 Acquired absence of both cervix and uterus; Z88.2 Allergy status to sulfonamides; Z88.8 Allergy status to other drugs, medicaments and biological substances
CPT/HCPCS: 00812; 82947; J2250; J2704; J7030